=== PATIENT | female | born 1995 | race Caucasian/White ===

== ENCOUNTER 2021-08-24 15:33 | Emergency (ER) | payer OTHER, SELFPAY ==
--- NOTE | 2021-08-24 | ECG_ITS ---
Test Reason : PSYCHIC MEDICATION Blood Pressure : / mmHG Vent. Rate : 066 BPM Atrial Rate : 066 BPM P-R Int : 144 ms QRS Dur : 092 ms QT Int : 398 ms P-R-T Axes : 042 036 018 degrees QTc Int : 417 ms Normal sinus rhythm Normal ECG When compared to the previous EKG of No significant changes seen Referred By: Anitha Greenberg Electronically Signed By:REAGAN CASTELLON MD
[2021-08-24 15:41] VITALS: BP 114/68; PULSE 78; RESP 19; TEMP 36.6; O2SAT 98; BMI 41.3
--- NOTE | 2021-08-24 16:22 | ED_ITS ---
HPI - Psych General Chief Complaint: Psychiatric Symptoms Stated Complaint: Crisis Time Seen by Provider: 08/24/21 15:56 Source: patient Mode of arrival: ambulatory Limitations: no limitations History of Present Illness HPI Narrative: 26-year-old female with a past medical history of major depressive disorder, and ADHD, who has recently moved back to the area presents for anxiety and depression. Patient denies suicidal ideation at this time, but states that she has not been on her medications, and she often will become hospitalized for suicidal ideation and racing thoughts when she is not on her medications. Denies homicidal ideation, denies hallucinations. Patient was living in [place] and recently moved back here a month ago. She has lost her insurance due to a recent divorce, and her meds ran out. She has no therapist or psychiatrist in the area. Patient states she has had 10 prior psychiatric hospitalizations for suicidal ideation. States she smokes marijuana multiple times a day which makes her symptoms worsen she would like to quit. Took mushrooms 2 days ago. Denies narcotics or alcohol use. Patient states she has chronic back pain due to obesity and would like to get a lap band for weight loss so she can have a breast reduction. Patient states she has been on Zoloft 150 mg daily, Abilify 2 mg daily gabapentin 600 mg t.i.d., trazodone 100 mg at bedtime and Adderall 30 mg. Related Data Allergies Allergy/AdvReac Type Severity Reaction Status Date / Time No Known Allergies Allergy Unverified 12/30/19 18:50 [No Known Allergies*] Review of Systems Constitutional: Constitutional: Denies body ache(s), Denies chills, Denies fatigue, Denies fever(s), Denies headache(s), Denies malaise and Denies weakness Eyes: Eyes: Denies diplopia ENT: Reports Normal hearing present, Denies vertigo, Denies dizziness, Denies otalgia, Denies headache(s), Denies mouth pain, Denies post nasal drip, Denies sinus pain, Denies sinus pressure, Denies sore throat and Denies throat swelling Cardiovascular: Cardiovascular: Denies chest pain, Denies syncope, Denies leg edema, Denies lightheadedness, Denies Loss of Consciousness, Denies palpitations and Denies dyspnea Respiratory: Respiratory: Denies chest congestion, Denies cough and Denies dyspnea Gastrointestinal: Gastrointestinal: Denies abdominal pain, Denies hematochezia, Denies constipation, Denies diarrhea and Denies vomiting Genitourinary: Genitourinary: Reports no additional female genitourinary complaints Musculoskeletal: Musculoskeletal: Reports back pain Integumentary/Breasts: Skin/Breast: Denies rash Neurologic: Reports Normal hearing present, Denies Abnormal speech present, Reports behavioral changes, Denies confusion, Denies vertigo, Denies dizziness, Denies syncope, Denies headache(s), Denies Sensory deficit (Neuro) and Denies weakness Psychiatric: Psychiatric: Reports anxiety, Reports behavioral changes, Denies confusion, Reports depression, Denies auditory hallucinations, Reports mood swings, Denies visual hallucinations, Denies hallucinations, Denies homicidal ideation and Denies suicidal ideation Endocrine: Endocrine: Denies fatigue and Denies palpitations Allergic/Immunologic: Allergic/Immunologic: Denies throat swelling COUNTS INCLUDE 234 BEDS AT THE [facility] Past Medical History COUNTS INCLUDE 234 BEDS AT THE [facility] Narrative: Major depressive disorder ADHD Social History Social History Patient Tobacco Use Status: Never used Tobacco Use of substances other than those prescribed or required for medical reasons: Yes Substance Use Type: Hallucinogens and Marijuana Substance Use Frequency: Occasionally Last Used Substance: Days (ago) Advance Directives: No Advance Directives Information Provided: No Physical Exam Vital Signs: Vital Signs: Last Vital Signs Temp 98 F 08/24/21 15:41 Pulse 78 08/24/21 15:41 Resp 19 08/24/21 15:41 BP 114/68 08/24/21 15:41 Pulse Ox 98 08/24/21 15:41 BMI result Body Mass Index 41.3 Const: General: No confusion Nutritional Appearance: well nourished Orientation/consciousness: No confusion Limitations: no limitations HEENT: Head: Yes normal to inspection, Yes normocephalic and Yes atraumatic Ears: hearing grossly normal bilaterally, external ears normal, TM's normal bilaterally and EAC's normal General nose exam: Normal external nose present Face and sinus: Yes normal facial exam and Yes sinuses nontender Mouth: Normal oral and palatal mucosa present Throat: Yes posterior oropharynx normal Eyes: Conjunctivae: conjunctivae normal Pupils: Equal, round and reactive pupils present EOM: EOMs intact bilaterally Neck: Neck: Yes full ROM, Yes no lymphadenopathy and Yes supple Resp: Effort & Inspection: normal respiratory effort and able to speak in complete sentences Auscultation: clear to auscultation bilaterally, no crackles, no rales, no rhonchi and no wheezes Cardio: Rate: regular rate Rhythm: regular rhythm Heart sounds: S1 normal heart sound present and S2 normal heart sound present GI: Inspection: Yes normal to inspection Palpation (GI): Soft to palpation, nontender, no guarding and not rigid Percussion: Yes normal to percussion Auscultation: normal bowel sounds Skin: General skin exam: no rashes or lesions noted Neuro: General: gait normal and No confusion Cranial nerves: Yes CN's II- XII intact bilaterally, Yes Facial sensation intact/muscles of mastication intact, Yes Equal, round and reactive pupils present, Yes Normal accommodation reflex present, Yes Bilaterally intact EOM present, Yes Nystagmus not present, Yes Normal facial strength present, Yes Midline tongue present, Yes Normal hearing present, Yes Ability to bilaterally rotate head present and Yes Ability to bilaterally elevate shoulders present Cognition (Neuro): normal cognition Speech: No Abnormal speech present Motor exam (neuro): 5/5 motor strength present throughout and Pronator motor function not present Sensory Exam: No Sensory deficit (Neuro) Deep tendon reflexes (DTR's): Right brachioradialis reflex intensity grade: 1+, Left brachioradialis reflex intensity grade: 1+, Right patellar reflex intensity grade: 1+ and Left patellar reflex intensity grade: 1+ Coordination: [id number] test normal and [id number] test normal Pupils: Normal pupillary reactivity/response: bilateral Extrem: General: Yes normal to inspection and Yes full ROM Psych: Appearance: grossly normal Affect: normal affect Attitude: cooperative Thought process: Normal thought process present Course Course Course Narrative: 26-year-old female presents for anxiety and depression after being off her medications. Patient is concerned because when she gets off her medications she becomes suicidal. On exam, patient is, cooperative, answering all questions appropriately. Patient has stable vitals, physical exam is unremarkable. Will get labs, EKG, urine, tox screen, COVID Reevaluation(s) Reevaluation #1: Labs are remarkable for mild anemia, patient is COVID negative, awaiting urine Sign patient out to Lizzy Martin PA-C, awaiting medical clearance MDM - Psych Lab Data Result diagrams: 08/24/21 16:43 08/24/21 16:43 Labs: Lab Results 08/24/21 08/24/21 08/24/21 Range/Units 16:15 16:43 16:43 WBC 10.5 (4.8-10.8) X10*3/uL RBC 4.06 L (4.20-5.50) X10*6/uL Hgb 11.1 L (12.0-16.0) g/dl Hct 34.8 L (37.0-47.0) % MCV 85.7 (80.0-98.0) fL MCH 27.3 (27.0-33.0) pg MCHC 31.9 (31.0-35.0) g/dl RDW 13.5 (11.0-16.0) % Plt Count 285 (160-400) X10*3/uL MPV 9.3 L (9.4-12.3) fL Immature Gran % (Auto) 0.4 (0.0-0.4) % Neut % (Auto) 63.2 (45-73) % Lymph % (Auto) 29.0 (20-40) % [place] % (Auto) 5.7 (2-11) % Eos % (Auto) 1.3 (0-4) % Baso % (Auto) 0.4 (0-2) % Lymph # (Auto) 3.0 (1.2-4.9) X10*3/uL [place] # (Auto) 0.6 (0.1-1.2) X10*3/uL Eos # (Auto) 0.1 (0.0-0.4) X10*3/uL Baso # (Auto) 0.0 (0.0-0.2) X10*3/uL Abs Immat Gran (auto) 0.04 H (0.00-0.03) X10*3/uL Absolute Neuts (auto) 6.6 (2.0-8.3) x10*3/uL Absolute Nucleated RBC 0.000 (0.0-0.012) X10*3/uL Nucleated RBC % (auto) 0.0 (0.0-0.2) /100WBC Sodium 138 (135-145) mmol/L Potassium 4.0 (3.3-5.1) mmol/L Chloride 104 (96-108) mmol/L Carbon Dioxide 28 (22-29) mmol/L Anion Gap 10 L (12-20) BUN 16 (9-16) mg/dL Creatinine 0.83 (0.5-1.4) mg/dL Estim Creat Clear Calc 144.2 Estimated GFR > 60 Random Glucose 92 (60-115) mg/dL Calcium 9.7 (8.4-10.2) mg/dL COVID-19 ([facility]ILCAR) Negative (Negative) COVID-19 Clin Com See Note Discharge Plan Discharge Clinical Impression: Depression Patient Disposition: Still a Patient
[2021-08-24 16:41] LABS: COVID-19 Test Negative (Negative); IDNOW Serial# 9DD0AD1C
[2021-08-24 16:50] LABS: MANUAL DIFF FLAG NO
[2021-08-24 16:51] LABS: Basophils Percent Auto 0.4 % (0-2); Eosinophils Absolute Auto 0.1 X10*3/uL (0.0-0.4); Eosinophils Percent Auto 1.3 % (0-4); Hematocrit 34.8 % (37.0-47.0); Hemoglobin 11.1 g/dl (12.0-16.0); Imm Gran Abs Auto 0.04 X10*3/uL (0.00-0.03); Imm Gran Pct Auto 0.4 % (0.0-0.4); Mean Corpuscular HGB Conc 31.9 g/dl (31.0-35.0); Mean Corpuscular Hemoglobin 27.3 pg (27.0-33.0); Mean Corpuscular Volume 85.7 fL (80.0-98.0); Mean Platelet Volume 9.3 fL (9.4-12.3); Monocytes Absolute Auto 0.6 X10*3/uL (0.1-1.2); Monocytes Percent Auto 5.7 % (2-11); Neutrophils Absolute Auto 6.6 x10*3/uL (2.0-8.3); Neutrophils Percent Auto 63.2 % (45-73); Platelet Count 285 X10*3/uL (160-400); Red Blood Count 4.06 X10*6/uL (4.20-5.50); Red Cell Distribution Width 13.5 % (11.0-16.0); White Blood Count 10.5 X10*3/uL (4.8-10.8)
[2021-08-24 17:03] LABS: Anion Gap 10 (12-20); Blood Urea Nitrogen 16 mg/dL (9-16); Calcium 9.7 mg/dL (8.4-10.2); Carbon Dioxide 28 mmol/L (22-29); Chloride 104 mmol/L (96-108); Creatinine Clr Calc Pharmacy 144.2; Estimated Glomerular Filt Rate > 60; Glucose Random 92 mg/dL (60-115); Sodium 138 mmol/L (135-145)
[2021-08-24] MEDS: LORazepam 1 MG TABLET PO (17:10)
[2021-08-24 18:16] LABS: Appearance Urine CLEAR; Color Urine YELLOW; Glucose Urine UA NEG (NEG); Leukocyte Esterase Urine NEG (NEG); Nitrite Urine NEG (NEG); Specific Gravity - Urine >= 1.030 (1.005-1.025); UACC Culture Trigger NO; Urine Blood 3+ (NEG); Urine Ketones 5 MG/DL (NEG); Urine Protein 1+ MG/DL (NEG-TRACE)
[2021-08-24 18:17] LABS: UPreg QC Valid YES; Urine Pregnancy NEGATIVE (NEGATIVE)
[2021-08-24 18:21] LABS: WBC Urine 0-2 /HPF (0-4)
[2021-08-24 18:22] LABS: Bacteria Urine 2+ /LPF; Squamous Epithelial Cell Urine 3+ /LPF
[2021-08-24 18:25] LABS: Amphetamine Screen Urine Not Detected (Not Detect); Barbiturates, Urine Not Detected (Not Detect); Benzodiazepines Screen Urine Not Detected (Not Detect); Cannabinoid Screen Urine POSITIVE (Not Detect); Cocaine Screen Urine Not Detected (Not Detect); Fentanyl, urine Not Detected (Not Detect); Opiate Screen Urine Not Detected (Not Detect); Phencyclidine Screen Urine Not Detected (Not Detect)
--- NOTE | 2021-08-24 18:47 | PC.NURSE ---
smart sheet sent to [facility]
--- NOTE | 2021-08-24 19:10 | PHA.MEDREC ---
MED REC COMPLETE, PATIENT HAD A FEW CONCERNS SUCH GETTING SOMETHING FOR HER ANXIETY, INCREASING THE DOSE ON HER TRAZODONE, AND SHE WAS PREVIOUSLY ON ADDERALL XR 30 MG, WANTS TO RESTART ON 20 MG, I DIRECTED PATIENT TO ADDRESS HER CONCERNS WITH THE PROVIDER WHEN SHE IS SEEN Pharmacy Consult ? Medication Reconciliation Pharmacy has completed the medication reconciliation.
[2021-08-24 23:45] VITALS: BP 105/57; PULSE 65; RESP 17; TEMP 36.7; O2SAT 98
--- NOTE | 2021-08-25 06:04 | PC.NURSE ---
Patient slept through the night, no distress observed/reported, behavior non concerning, awaiting BHN assessment in the morning, med rec completed/MAR active, VSS, will continue to monitor.
[2021-08-25] MEDS: Gabapentin 600 MG TABLET PO (08:01)
[2021-08-25] MEDS: Sertraline HCL 25 MG TABLET 125 MG PO (08:01)
[2021-08-25] MEDS: Dextroamphetamine/Amphetamine XR 10 MG CAP.ER.24H 30 MG PO (08:01)
[2021-08-25] MEDS: ARIPiprazole 2 MG TABLET PO (09:42)
[2021-08-25] MEDS: LORazepam 1 MG TABLET PO (13:43)
== END 2021-08-25 13:56 | disposition home or self-care (01) ==
PROVIDERS: Physician Assistant; Emergency Provider Internal Medicine
DX: F33.9 Major depressive disorder, recurrent, unspecified (principal); F12.90 Cannabis use, unspecified, uncomplicated; F90.9 Attention-deficit hyperactivity disorder, unspecified type; Z79.899 Other long term (current) drug therapy; Z20.822 Contact with and (suspected) exposure to COVID-19
CPT/HCPCS: 80048; 80307; 81001; 81025; 85025; 87635; 93005; 99284

== ENCOUNTER 2021-10-02 20:27 | Emergency (ER) | payer OTHER, SELFPAY ==
[2021-10-02 20:44] VITALS: BP 110/64; PULSE 78; RESP 18; TEMP 36.3; O2SAT 94; BMI 41.3
--- NOTE | 2021-10-02 22:09 | PC.NURSE ---
Pt sitting in a wheelchair in the entry way of the ER. This RN getting a wheelchair for another patient and overheard C.M. on the phone state If I tell them that, they will lock me up. This RN calling Hugh RN due to possible SI despite denial during Triage.
[2021-10-02 23:01] LABS: COVID-19 Test Negative (Negative); IDNOW Serial# 55D5AD1C
[2021-10-02 23:04] LABS: Amphetamine Screen Urine POSITIVE (Not Detect); Barbiturates, Urine Not Detected (Not Detect); Benzodiazepines Screen Urine Not Detected (Not Detect); Cannabinoid Screen Urine POSITIVE (Not Detect); Cocaine Screen Urine Not Detected (Not Detect); Fentanyl, urine Not Detected (Not Detect); Opiate Screen Urine Not Detected (Not Detect); Phencyclidine Screen Urine Not Detected (Not Detect)
--- NOTE | 2021-10-02 23:29 | ED_ITS ---
HPI - General Adult General Chief complaint: General Medical Stated complaint: Psych eval Time Seen by Provider: 10/02/21 23:29 Source: patient Mode of arrival: ambulatory Limitations: no limitations History of Present Illness HPI narrative: This is a 26-year-old female history of anxiety, depression presenting to the emergency department with complaints of anxiety, depression and not being able to take her medications times 3-4 weeks. Patient tells me 5 weeks ago she was seen here in the emergency department was evaluated was told to follow-up with [facility] which she did, N assigned her provider who prescribed her medications, and told her follow-up with them in 3 weeks, she tells me a few weeks past and she never heard from the provider and that they never sent her scripts to her pharmacy. She tells me she has been having increasing anxiety and depression. She is not sure why this is happening. She tells me she needs to speak to somebody for her anxiety and depression. Denies visual, auditory and tactile hallucinations. Tells me she smokes marijuana, denies any other drug use, drinks alcohol socially and denies any tobacco use. Patient denies SI and HI. She has had multiple psychiatric admissions. Medications she is currently taking includes Adderall, gabapentin, Abilify, Zoloft and trazodone. To note, patient tells me that she got a notification from her pharmacy that her meds were filled today however she would like to speak to somebody about her anxiety and her depression. She tells me it is affecting her daily life. Denying any medical complaints at this time Related Data Home Medications Medication Instructions Recorded Confirmed aripiprazole 2 mg tablet 1 tab PO QAM 10/02/21 10/02/21 dextroamphetamine-amphetamine 30 1 tab PO QAM 10/02/21 10/02/21 mg tablet gabapentin 600 mg tablet 1 tab PO TID 10/02/21 10/02/21 sertraline 100 mg tablet 1 tab PO QAM 10/02/21 10/02/21 trazodone 100 mg tablet 1 tab PO BEDTIME 10/02/21 10/02/21 Allergies Allergy/AdvReac Type Severity Reaction Status Date / Time No Known Allergies Allergy Unverified 12/30/19 18:50 [No Known Allergies*] Review of Systems Review of Systems: Constitutional : No Fever, No Chills ENT/Mouth : No Ear Pain, No Nasal Congestion, No sore throat Eyes: No Eye Pain, No Swelling, No Redness Cardiovascular : No Chest Pain, No SOB Respiratory : No Cough, No Sputum, No Dyspnea Gastrointestinal : No Nausea, No Vomiting, No Diarrhea, No Hematochezia, No Melena Genitourinary : No Dysuria, No Urinary Frequency, No Hematuria Musculoskeletal : No Myalgias Skin : No Skin Lesions, No rash Neuro : No Weakness, No Numbness, No Paresthesias, No Dizziness, No Headache Psych : positive Anxiety, positive Depression, No SI/HI All other systems reviewed and are negative Yes all other systems are reviewed and are negative [facility] Past Medical History Attestation statement: The following information was validated with the patient. Source: old records reviewed and nursing notes reviewed Social History Social History Patient Tobacco Use Status: Never used Tobacco Substance Use Type: Hallucinogens and Marijuana Advance Directives: No Advance Directives Information Provided: No Physical Exam ED Vital Signs: Vital Signs - 24 hr 10/02/21 20:44 Temperature 97.3 F Pulse Rate 78 Respiratory Rate 18 Blood Pressure 110/64 Pulse Oximetry 94 Oxygen Delivery Method Room Air BMI result Body Mass Index 41.3 Vital signs stable Appearance: Alert.? Oriented X3.? No acute distress.? Head: Normocephalic, atraumatic, no step-offs or deformities Eyes: Pupils equal, round and reactive to light.? CVS: Normal heart rate and rhythm.? Pulses normal.? Respiratory: No respiratory distress.? Breath sounds normal.? Abdomen: Soft and nontender.? Skin: Skin warm and dry.? Normal skin color.? Normal skin turgor.? Extremities: No lower extremity edema.? No calf ttp. 5/5 strength to bilateral upper and lower extremities Neuro: Oriented X 3.? No motor deficit.? No sensory deficit. CN 2-12 intact Course Reevaluation(s) Reevaluation #1: Urine toxicology positive for amphetamines and marijuana. COVID negative. At this time patient will be placed in physician observation to allow more time for patient to be evaluated by the behavioral health team. Time observation was started patient common cooperative no acute distress. Will continue to monitor. Patient is not on a Section 12, if patient desires to leave she can do so as long as she is denying suicidal and homicidal ideation and her presentation remains unchanged. Time: 23:34 Medical Decision Making MDM Narrative Medical decision making narrative: 2315 26-year-old female presents the anxiety, depression requesting to speak to the behavioral health team. Denies SI and HI. Has not been taking her medications due to not being able to fill them however they are currently at her pharmacy waiting for her. Physical examination benign. Plan at this time is COVID test, urine. Patient will be medically cleared and then she can speak to the behavioral health team. Medical Records Medical records reviewed: Yes I reviewed the patient's medical records. Lab Data Lab results reviewed: Yes I reviewed the patient's lab results. Labs: Lab Results 10/02/21 10/02/21 Range/Units 22:38 22:38 Urine Opiates Screen Not Detected (Not Detect) Urine Fentanyl Screen Not Detected (Not Detect) Ur Barbiturates Screen Not Detected (Not Detect) Ur Phencyclidine Scrn Not Detected (Not Detect) Ur Amphetamines Screen POSITIVE H (Not Detect) U Benzodiazepines Scrn Not Detected (Not Detect) Urine Cocaine Screen Not Detected (Not Detect) U Marijuana (THC) Screen POSITIVE H (Not Detect) COVID-19 ([facility]ILCAR) Negative (Negative) COVID-19 Clin Com See Note Critical Care Time Critical Care Time Critical Care Time: No Discharge Plan Discharge Clinical Impression: Depression, Anxiety Patient Disposition: Still a Patient Instructions: Anxiety (ED), Depression (ED) Additional Instructions: Take your medications as prescribed. If you were prescribed antibiotics today, it is important that you take your medication to their entirety, do not skip any doses, do not finish them early. Follow-up with your primary care provider this week. Return to the emergency department with new or worsening symptoms. Such as fevers, chills, chest pain, shortness of breath, nausea, vomiting, dizziness, headache, vision changes, lethargy, suicidal ideation, homicidal ideation. In case of emergency call 911 Follow-up with the behavioral health team including your psychiatrist and therapist. Prescriptions: No Action gabapentin 600 mg tablet 1 tab PO TID sertraline 100 mg tablet 1 tab PO QAM dextroamphetamine-amphetamine 30 mg tablet 1 tab PO QAM trazodone 100 mg tablet 1 tab PO BEDTIME aripiprazole 2 mg tablet 1 tab PO QAM Referrals[facility] [Provider Group] - 1 day Stand Alone Forms: Work/School Release
[2021-10-02 23:37] VITALS: BP 109/58; PULSE 75; RESP 17; TEMP 36.5; O2SAT 98
[2021-10-02] MEDS: LORazepam 1 MG TABLET PO (23:58)
--- NOTE | 2021-10-03 01:30 | MHC.CARE ---
Pt self presented to the ED reporting that she was out of her medications and couldn't get in touch with the psychiatric provider at [facility] to have them refilled. Per nurse- medications are at the pharmacy. Pt presents with odd affect but is not considered to be a risk for harm to self or others, nor does her judgment appeared to be impaired. Plan is for pt to stay in the pod overnight and discharge in the morning so that she can picking tech her medications.
--- NOTE | 2021-10-03 06:32 | PC.NURSE ---
Patient slept through the night, + effect from Ativan 1 mg PO, no distress observed/reported, patient denied si/hi/avh, BHN referral completed for depression/confirmed/pending BHN ETA, med rec completed/pending provider's approval, VSS, behavior appropriate, will continue to monitor.
--- NOTE | 2021-10-03 08:47 | PC.NURSE ---
pt received in bed 7, sleeping. no concerning behaviors. will continue to monitor
--- NOTE | 2021-10-03 10:55 | MHC.CARE ---
Spoke to patient in [facility] this morning to discuss discharge plan, she understands that her prescriptions are ready at the pharmacy. Patient stated that she has been struggling to contact her new psychiatrist and is upset that he did not prescribe extended release Adderall which she has taken for about 20 years. She explained that the mehta of medication makes her anxious and has to repeat this with each dose. Unfortunately this is not something that can be addressed in the ED, which she understood. A phone and # for her provider, she did reach out. Patient calling her mother for a ride. ED provider updated.
== END 2021-10-03 10:23 | disposition home or self-care (01) ==
PROVIDERS: Emergency Provider Internal Medicine
DX: F33.1 Major depressive disorder, recurrent, moderate (principal); F41.1 Generalized anxiety disorder; F43.0 Acute stress reaction; Z79.899 Other long term (current) drug therapy; Z20.822 Contact with and (suspected) exposure to COVID-19
CPT/HCPCS: 80307; 87635; 99283; 99284

== ENCOUNTER 2021-12-13 14:52 | Emergency (ER) | payer OTHER, SELFPAY ==
[2021-12-13 15:04] VITALS: BP 112/67; PULSE 667; RESP 19; TEMP 36.6; O2SAT 99; BMI 42.8
--- NOTE | 2021-12-13 17:20 | ED_ITS ---
HPI - General Adult General Chief complaint: General Medical Stated complaint: Disoriented Time Seen by Provider: 12/13/21 15:13 Related Data Home Medications Medication Instructions Recorded Confirmed aripiprazole 2 mg tablet 1 tab PO QAM 10/02/21 10/02/21 dextroamphetamine-amphetamine 30 1 tab PO QAM 10/02/21 10/02/21 mg tablet gabapentin 600 mg tablet 1 tab PO TID 10/02/21 10/02/21 sertraline 100 mg tablet 1 tab PO QAM 10/02/21 10/02/21 trazodone 100 mg tablet 1 tab PO BEDTIME 10/02/21 10/02/21 Previous Rx's Medication Instructions Recorded dextroamphetamine-amphetamine 30 30 mg PO DAILY #30 tabs 12/13/21 mg tablet (Adderall) hydroxyzine HCl 25 mg tablet 25 mg PO Q6-8H PRN anxiety #40 tabs 12/13/21 Allergies Allergy/AdvReac Type Severity Reaction Status Date / Time No Known Allergies Allergy Unverified 12/30/19 18:50 [No Known Allergies*] Review of Systems Review of Systems: Yes all other systems are reviewed and are negative [facility] Past Medical History Medical History (Updated 12/13/21 @ 18:02 by Diogenes Landers MD) ADHD Anxiety Bipolar 1 disorder Social History Social History Patient Tobacco Use Status: Never used Tobacco Use of substances other than those prescribed or required for medical reasons: Yes Substance Use Type: Marijuana Advance Directives: No Advance Directives Information Provided: No Patient : No Physical Exam ED Vital Signs: Vital Signs - 24 hr 12/13/21 15:04 12/13/21 17:42 Temperature 98 F 98.7 F Pulse Rate 667 H 77 Respiratory Rate 19 20 Blood Pressure 112/67 117/73 Pulse Oximetry 99 100 Oxygen Delivery Method Room Air Nasal Cannula BMI result Body Mass Index 42.8 Medical Decision Making MDM Narrative Medical decision making narrative: Patient's symptoms likely from withdrawal from adderall which she had been taking for last 20 years as she moved from [place] and she does not have any psychiatrist working on getting a new one Discharge Plan Discharge Clinical Impression: Anxiety Patient Disposition: Home, Self-Care Instructions: Anxiety (ED) Additional Instructions: Take your Adderall and Atarax as prescribed Prescriptions: New dextroamphetamine-amphetamine [Adderall] 30 mg tablet 30 mg PO DAILY Qty: 30 0RF Rx Instructions: Partial Fill upon patient request. hydroxyzine HCl 25 mg tablet 25 mg PO Q6-8H PRN (Reason: anxiety) Qty: 40 0RF No Action gabapentin 600 mg tablet 1 tab PO TID sertraline 100 mg tablet 1 tab PO QAM dextroamphetamine-amphetamine 30 mg tablet 1 tab PO QAM trazodone 100 mg tablet 1 tab PO BEDTIME aripiprazole 2 mg tablet 1 tab PO QAM Referrals: Galileo Knight MD [Physician] - 2 weeks
--- NOTE | 2021-12-13 17:32 | ED_ITS ---
HPI - General Adult General Chief complaint: General Medical Stated complaint: Disoriented Time Seen by Provider: 12/13/21 15:13 Source: patient Mode of arrival: ambulatory Limitations: no limitations History of Present Illness HPI narrative: History of bipolar, anxiety, ADHD on multiple medications use the bilateral for last 20 years when she was in [place] she moved to [place] in 10/03 unable to establish a psychiatrist yet has not taken her Adderall for last 3 weeks also 3 weeks ago while tubing she fell of the tube about knee-high water and hit her head no loss of consciousness patient is more worried since then unable to sleep feel anxious nausea during complaints no projectile vomiting patient denies any suicidal ideation or significant depression Related Data Home Medications Medication Instructions Recorded Confirmed aripiprazole 2 mg tablet 1 tab PO QAM 10/02/21 10/02/21 dextroamphetamine-amphetamine 30 1 tab PO QAM 10/02/21 10/02/21 mg tablet gabapentin 600 mg tablet 1 tab PO TID 10/02/21 10/02/21 sertraline 100 mg tablet 1 tab PO QAM 10/02/21 10/02/21 trazodone 100 mg tablet 1 tab PO BEDTIME 10/02/21 10/02/21 Previous Rx's Medication Instructions Recorded dextroamphetamine-amphetamine 30 30 mg PO DAILY #30 tabs 12/13/21 mg tablet (Adderall) hydroxyzine HCl 25 mg tablet 25 mg PO Q6-8H PRN anxiety #40 tabs 12/13/21 Allergies Allergy/AdvReac Type Severity Reaction Status Date / Time No Known Allergies Allergy Unverified 12/30/19 18:50 [No Known Allergies*] Review of Systems Review of Systems: Yes all other systems are reviewed and are negative [facility] Past Medical History Medical History (Updated 12/13/21 @ 18:02 by Diogenes Landers MD) ADHD Anxiety Bipolar 1 disorder Social History Social History Patient Tobacco Use Status: Never used Tobacco Use of substances other than those prescribed or required for medical reasons: Yes Substance Use Type: Marijuana Advance Directives: No Advance Directives Information Provided: No Patient : No Physical Exam ED Vital Signs: Vital Signs - 24 hr 12/13/21 15:04 12/13/21 17:42 Temperature 98 F 98.7 F Pulse Rate 667 H 77 Respiratory Rate 19 20 Blood Pressure 112/67 117/73 Pulse Oximetry 99 100 Oxygen Delivery Method Room Air Nasal Cannula BMI result Body Mass Index 42.8 Appearance: Alert. Oriented X3. No acute distress. Eyes: PERRLA, No Nystagmus ENT: Pharynx normal. Oral Mucosa moist Neck: Normal inspection. Neck supple. CVS: Normal heart rate and rhythm. Pulses normal. Respiratory: No respiratory distress. Equal air entry bilateral, no wheezing/rales/rhonchi Abdomen: Soft and nontender. Bowel sounds are present, no mass palpable, no CVA tenderness Skin: Skin warm and dry. Normal skin color. Normal skin turgor. Extremities: No lower extremity edema. No calf tenderness psych: Mood stable no SI no hallucination or delusion Neuro: Oriented X 3. No motor deficit. Medical Decision Making MDM Narrative Medical decision making narrative: Patient's symptoms likely from withdrawal from adderall which she had been taking for last 20 years as she moved from [place] and she does not have any psychiatrist working on getting a new one Discharge Plan Discharge Clinical Impression: Anxiety Patient Disposition: Home, Self-Care Instructions: Anxiety (ED) Additional Instructions: Take your Adderall and Atarax as prescribed Prescriptions: New dextroamphetamine-amphetamine [Adderall] 30 mg tablet 30 mg PO DAILY Qty: 30 0RF Rx Instructions: Partial Fill upon patient request. hydroxyzine HCl 25 mg tablet 25 mg PO Q6-8H PRN (Reason: anxiety) Qty: 40 0RF No Action gabapentin 600 mg tablet 1 tab PO TID sertraline 100 mg tablet 1 tab PO QAM dextroamphetamine-amphetamine 30 mg tablet 1 tab PO QAM trazodone 100 mg tablet 1 tab PO BEDTIME aripiprazole 2 mg tablet 1 tab PO QAM Referrals: Galileo Knight MD [Physician] - 2 weeks Interventions: ED Discharge Assessment Last Done: 12/13/21 18:12 Discharge Date/Time: 12/13/21 18:13
[2021-12-13 17:42] VITALS: BP 117/73; PULSE 77; RESP 20; TEMP 37.1; O2SAT 100
[2021-12-13] MEDS: hydrOXYzine HCL 25 MG TABLET PO (18:01)
[2021-12-13] MEDS: LORazepam 1 MG TABLET PO (18:05)
--- NOTE | 2021-12-13 18:05 | PC.NURSE ---
Patient arrived with withdraw symptoms such as agitations, irritation, dizziness, and forgetful d/t stopping taking the [employer] adderral. Patient VS were stable and meds were administer as order by .
== END 2021-12-13 18:13 | disposition home or self-care (01) ==
PROVIDERS: Emergency Provider Internal Medicine
DX: F41.9 Anxiety disorder, unspecified (principal)
CPT/HCPCS: 99283; 99284

== ENCOUNTER 2022-03-16 16:55 | Emergency (ER) | payer OTHER, SELFPAY ==
[2022-03-16 17:00] VITALS: BP 131/86; PULSE 76; RESP 18; TEMP 36.2; O2SAT 98; BMI 42.8
--- NOTE | 2022-03-16 17:23 | ED.HA ---
HPI - Headache General Chief Complaint: Headache Stated Complaint: Migraine, vomiting Time Seen by Provider: 03/16/22 17:38 Source: patient Mode of arrival: ambulatory Limitations: no limitations History of Present Illness HPI Narrative: Poppy is a 27 yo female with a PMHx of migraines, anxiety, and bipolar 1 disorder who presents to the emergency department with a CC of a headache that started last night and has continued today. She says that she does have migraines that are triggered by stress and she was recently going through some personal stressors at home. She describes the headache as a pressure all over her head. She tried showering and taking some of her mom's sumitriptan, both of which did not help. She did vomit after taking the medication. She additionally reports photophobia but denies fevers, chills, chest pain, shortness of breath, diarrhea, constipation, or urinary changes. She says that she has had headaches like this before but typically they have gone away with rest and medication. MD elicited complaint: migraine Pertinent past history: migraines Onset (ago): day(s) Onset description: suddenly Location: generalized Severity: severe Quality & Timing: pressure Exacerbating factors: light and other (stress) Relieving factors: rest and sleep Context: other (occured due to personal stressor with family) Associated symptoms: none Treatments prior to arrival: migraine medication (sumitriptan) Related Data Home Medications Medication Instructions Recorded Confirmed aripiprazole 2 mg tablet 1 tab PO QAM 10/02/21 10/02/21 dextroamphetamine-amphetamine 30 1 tab PO QAM 10/02/21 10/02/21 mg tablet gabapentin 600 mg tablet 1 tab PO TID 10/02/21 10/02/21 sertraline 100 mg tablet 1 tab PO QAM 10/02/21 10/02/21 trazodone 100 mg tablet 1 tab PO BEDTIME 10/02/21 10/02/21 Previous Rx's Medication Instructions Recorded dextroamphetamine-amphetamine 30 30 mg PO DAILY #30 tabs 12/13/21 mg tablet (Adderall) hydroxyzine HCl 25 mg tablet 25 mg PO Q6-8H PRN anxiety #40 tabs 12/13/21 Allergies Allergy/AdvReac Type Severity Reaction Status Date / Time No Known Allergies Allergy Verified 03/16/22 16:59 [No Known Allergies*] Review of Systems Review of Systems: Yes all other systems are reviewed and are negative Constitutional: Constitutional: Reports no additional constitutional complaints, Denies body ache(s), Denies chills, Denies fever(s), Reports headache(s) and Denies weakness Eyes: Eyes: Reports no additional eye complaints and Denies change in vision ENT: Reports system reviewed and no additional complaints, except as documented, Denies dizziness, Reports headache(s), Denies nasal congestion, Denies nasal discharge and Denies neck pain Cardiovascular: Cardiovascular: Reports no additional cardiovascular complaints, Denies chest pain, Denies leg edema and Denies dyspnea Respiratory: Respiratory: Reports no additional respiratory complaints, Denies cough and Denies dyspnea Gastrointestinal: Gastrointestinal: Reports no additional gastrointestinal complaints, Denies abdominal pain, Denies diarrhea, Reports nausea and Reports vomiting (vomited after taking sumitriptan) Genitourinary: Genitourinary: Reports no additional female genitourinary complaints and Denies urinary incontinence Musculoskeletal: Musculoskeletal: Reports no additional musculoskeletal complaints, Denies back pain, Denies arthralgias, Denies joint swelling, Denies neck pain, Denies numbness and Denies tingling Integumentary/Breasts: Skin/Breast: Reports system reviewed and no additional complaints, except as docu and Denies rash Neurologic: Reports system reviewed and no additional complaints, except as documented, Denies Abnormal speech present, Denies dizziness, Reports headache(s), Denies numbness, Denies tingling and Denies weakness PMFSH Past Medical History Attestation statement: The following information was validated with the patient. Source: old records reviewed Medical History ADHD Anxiety Bipolar 1 disorder Social History Social History Patient Tobacco Use Status: Never used Tobacco Substance Use Type: Marijuana Advance Directives: No Advance Directives Information Provided: No Physical Exam Vital Signs: Vital Signs: Last Vital Signs Temp 97.1 F 03/16/22 17:00 Pulse 76 03/16/22 17:00 Resp 18 03/16/22 17:00 BP 131/86 03/16/22 17:00 Pulse Ox 98 03/16/22 17:00 O2 Del Method 03/16/22 17:00 BMI result Body Mass Index 42.8 Const: General: cooperative, healthy appearing, comfortable and no acute distress Orientation/consciousness: patient oriented x3 Limitations: no limitations HEENT: Head: Yes normal to inspection and No Temporal artery tenderness present Ears: hearing grossly normal bilaterally and TM's normal bilaterally General nose exam: Normal external nose present Face and sinus: Yes normal facial exam Mouth: Normal oral and palatal mucosa present Throat: Yes posterior oropharynx normal Eyes: General: appearance normal, both eyes and all related structures Pupils: Equal, round and reactive pupils present Neck: Neck: Yes normal visual inspection and Yes no meningeal signs Chest: Chest palpation & inspection: normal inspection of the chest Resp: Effort & Inspection: normal respiratory effort Auscultation: clear to auscultation bilaterally Cardio: Rate: regular rate Rhythm: regular rhythm Peripheral pulses: Peripheral pulses 2+ throughout GI: Inspection: Yes normal to inspection Palpation (GI): Soft to palpation and nontender Auscultation: normal bowel sounds Back/Spine/Pelvis: Thoracic/Lumbar Spine: thoracic and lumbar spine normal to inspection Skin: General skin exam: no rashes or lesions noted Neuro: General: patient oriented x3, no meningeal signs, no focal motor deficits and normal sensation to monofilament Cranial nerves: Yes CN's II-XII intact bilaterally and Yes Equal, round and reactive pupils present Cognition (Neuro): normal cognition Speech: No Abnormal speech present Gait exam (Neuro): Normal gait present Motor exam (neuro): 5/5 motor strength present throughout Sensory Exam: Normal double simultaneous stimulation for sensation Extrem: General: Yes normal to inspection Course Course Course Narrative: This is a rapid medical exam. Additional HPI, ROS, PE deferred for primary provider. 27 yo female with history of migraines here with migraine/vomiting not relieved with excedrin. BILL Mcwilliams is a 27 yo female with a history of migraines, anxiety, and bipolar disorder who presented to the ED with a migraine not relieved by medication or rest. Pt vomited once today after taking sumitriptan. PE was unremarkable. normal neuro with no focal deficits. Pt was given Benedryl 25 mg, Ketrolac 30 mg, Metoclopramide 10 mg all IV and was also given some normal saline for hydration. Pt symptoms improved significantly. She indicates she would like to leave and will be discharged. Medications Administered Discontinued Medications Generic Name Dose Route Start Last Admin Trade Name Doug PRN Reason Stop Dose Admin Diphenhydramine HCl 25 mg 03/16/22 17:44 03/16/22 18:43 Diphenhydramine Hcl 50 Mg/Ml Vial IVPUSH 03/16/22 17:45 25 mg ONCE ONE Administration Sodium Chloride 1,000 mls @ 999 mls/hr 03/16/22 17:44 03/16/22 20:23 Ns IV 03/16/22 18:44 Infused .Q1H1M STA Infusion Ketorolac Tromethamine 30 mg 03/16/22 17:44 03/16/22 18:42 Ketorolac Tromethamine 30 Mg/Ml Vial IVPUSH 03/16/22 17:45 30 mg ONCE ONE Administration Metoclopramide HCl 10 mg 03/16/22 17:44 03/16/22 18:34 Metoclopramide Hcl 10 Mg/2 Ml Vial IVPUSH 03/16/22 17:45 10 mg ONCE ONE Administration MDM - Headache MDM Narrative Medical decision making narrative: consider meningitis, pseudotumour cerebri, temporal arteritis, SAH Less likely meningitis with no meningeal signs, no fever. Less likely pseudotumor cerebri with no change in positions with headache. Less likely temporal arteritis with no focal temporal artery tenderness, no fevers, vision changes. Less likely subarachnoid hemorrhage with gradual onset of symptoms with no reports of sudden headache or thunderclap headache. Differential Diagnosis Differential diagnosis: Likely migraine Medical Records Attestation: I reviewed the patient's medical records. Lab Data Attestation: I reviewed the patient's lab results. Discharge Plan Discharge Clinical Impression: Migraine Patient Disposition: Home, Self-Care Instructions: Migraine Headache (ED) Prescriptions: No Action gabapentin 600 mg tablet 1 tab PO TID sertraline 100 mg tablet 1 tab PO QAM dextroamphetamine-amphetamine 30 mg tablet 1 tab PO QAM trazodone 100 mg tablet 1 tab PO BEDTIME aripiprazole 2 mg tablet 1 tab PO QAM dextroamphetamine-amphetamine [Adderall] 30 mg tablet 30 mg PO DAILY Qty: 30 0RF Rx Instructions: Partial Fill upon patient request. hydroxyzine HCl 25 mg tablet 25 mg PO Q6-8H PRN (Reason: anxiety) Qty: 40 0RF Referrals: Physician,None [Primary Care Provider] - Interventions: ED Discharge Assessment Last Done: 03/16/22 20:23 Discharge Date/Time: 03/16/22 20:24
[2022-03-16] MEDS: 0.9 % Sodium Chloride 1,000 ML 999 ML IV (18:32)
[2022-03-16] MEDS: Metoclopramide HCl 10 MG/2 ML VIAL IVPUSH (18:34)
[2022-03-16] MEDS: Ketorolac Tromethamine 30 MG/ML VIAL IVPUSH (18:42)
[2022-03-16] MEDS: diphenhydrAMINE HCL 50 MG/ML VIAL 25 MG IVPUSH (18:43)
--- NOTE | 2022-03-16 20:22 | PC.NURSE ---
Pt. resting quietly in bed in dark room. Pt. reports pain relief from the migraine IVF fluids complete. IV removed. Pt. dc'd.
== END 2022-03-16 20:24 | disposition home or self-care (01) ==
PROVIDERS: Emergency Provider Emergency Medicine Emergency Medical Services
DX: G43.909 Migraine, unspecified, not intractable, without status migrainosus (principal)
CPT/HCPCS: 96361; 96374; 96375; 99284; J1200; J1885; J2765

== ENCOUNTER 2022-03-25 08:37 | Emergency (ER) | payer OTHER, SELFPAY ==
[2022-03-25 08:46] VITALS: BP 134/80; PULSE 91; RESP 20; TEMP 36.5; O2SAT 97; BMI 42.8
--- NOTE | 2022-03-25 08:53 | ED_ITS ---
HPI - General Adult General Chief complaint: General Medical Stated complaint: Migraine/Neck pain Time Seen by Provider: 03/25/22 08:53 Source: patient Mode of arrival: ambulatory Limitations: no limitations History of Present Illness HPI narrative: Patient is a 27 year old assigned female at with a history of migraines presenting to the emergency department today with a headache, nausea, and fe vers. Patient states that over the last 2 weeks she has noticed she is having worsening migraines and now she is having nausea and intermittent fevers. Patient denies any dizziness, lightheadedness, abdominal pain, vomiting, chills, blurry vision, double vision, loss of vision, chest pain, difficulty breathing, shortness of breath, back pain, night sweats, pain with urination, increased urinary frequency, increased urinary urgency, blood in her urine or stool, syncope or a near syncopal episode, recent trauma or falls, bowel incontinence, bladder incontinence, bowel retention, bladder retention, or any other complaints at this time. Onset (ago): week(s) Severity: mild Severity scale (1-10): 2 Relieving factors: none Exacerbating factors: none Associated symptoms: fever/chills Treatments prior to arrival: none Related Data Home Medications Medication Instructions Recorded Confirmed aripiprazole 2 mg tablet 1 tab PO QAM 10/02/21 10/02/21 dextroamphetamine-amphetamine 30 1 tab PO QAM 10/02/21 10/02/21 mg tablet gabapentin 600 mg tablet 1 tab PO TID 10/02/21 10/02/21 sertraline 100 mg tablet 1 tab PO QAM 10/02/21 10/02/21 trazodone 100 mg tablet 1 tab PO BEDTIME 10/02/21 10/02/21 Previous Rx's Medication Instructions Recorded dextroamphetamine-amphetamine 30 30 mg PO DAILY #30 tabs 12/13/21 mg tablet (Adderall) hydroxyzine HCl 25 mg tablet 25 mg PO Q6-8H PRN anxiety #40 tabs 12/13/21 naproxen 500 mg tablet 500 mg PO BID 7 days #14 tabs 03/25/22 Allergies Allergy/AdvReac Type Severity Reaction Status Date / Time No Known Allergies Allergy Verified 03/16/22 16:59 [No Known Allergies*] Review of Systems Constitutional: Constitutional: Reports no additional constitutional complaints, Reports body ache(s), Denies chills, Reports fever(s), Reports headache(s) and Denies night sweats Eyes: Eyes: Reports no additional eye complaints, Denies blurry vision, Denies change in vision, Denies diplopia, Denies eye discharge, Denies loss of vision and Denies eye pain ENT: Denies dizziness and Reports headache(s) Cardiovascular: Cardiovascular: Reports no additional cardiovascular complaints, Denies chest pain, Denies lightheadedness, Denies Loss of Consciousness and Denies dyspnea Respiratory: Respiratory: Reports no additional respiratory complaints and Denies dyspnea Gastrointestinal: Gastrointestinal: Reports no additional gastrointestinal complaints, Denies abdominal pain, Denies melena, Denies hematochezia, Denies change in bowel habits and Denies change in stool character Genitourinary: Genitourinary: Denies hematuria, Denies urinary frequency, Denies dysuria, Denies urinary incontinence, Denies urinary hesitancy and Denies urinary urgency Musculoskeletal: Musculoskeletal: Reports no additional musculoskeletal complaints, Denies numbness and Denies tingling Neurologic: Denies dizziness, Reports headache(s), Denies loss of vision, Denies numbness and Denies tingling Psychiatric: Psychiatric: Reports no additional psychiatric complaints Endocrine: Endocrine: Reports no additional endocrine complaints Hematologic/Lymphatic: Hematologic/Lymphatic: Reports no additional hematologic/lymphatic complaints Allergic/Immunologic: Allergic/Immunologic: Reports no additional allergic/immunologic complaints PMFSH Past Medical History Attestation statement: The following information was validated with the patient. Source: old records reviewed and nursing notes reviewed Medical History ADHD Anxiety Bipolar 1 disorder Social History Social History Patient Tobacco Use Status: Never used Tobacco Substance Use Type: Marijuana Advance Directives: No Advance Directives Information Provided: No Physical Exam ED Vital Signs: Vital Signs - 24 hr 03/25/22 08:46 Temperature 97.7 F Pulse Rate 91 Respiratory Rate 20 Blood Pressure 134/80 Pulse Oximetry 97 Oxygen Delivery Method Room Air BMI result Body Mass Index 42.8 Const General: cooperative, no acute distress, alert and awake Nutritional Appearance: well nourished Orientation/consciousness: patient oriented x3 Limitations: no limitations HENMT Head: Yes normal to inspection and Yes atraumatic Ears: hearing grossly normal bilaterally and external ears normal General nose exam: Normal external nose present, no nasal discharge noted and no epistaxis Face and sinus: Yes normal facial exam, No abrasion and No laceration Mouth: Normal oral and palatal mucosa present, no drooling and no muffled voice Eyes General: appearance normal, both eyes and all related structures Periorbital: periorbital findings normal Eyelids: Yes eyelids normal Conjunctivae: conjunctivae normal Pupils: Equal, round and reactive pupils present EOM: EOMs intact bilaterally Neck Neck: Yes normal visual inspection, Yes full ROM and Yes no lymphadenopathy Chest Chest palpation & inspection: normal inspection of the chest Resp Effort & Inspection: normal respiratory effort and able to speak in complete sentences Auscultation: clear to auscultation bilaterally Cardio Rate: regular rate Rhythm: regular rhythm GI Inspection: Yes normal to inspection Palpation (GI): Soft to palpation, not firm, nontender, no guarding and not rigid Neuro General: patient oriented x3 and moves all extremities Cranial nerves: Yes Equal, round and reactive pupils present Cognition (Neuro): normal cognition Motor exam (neuro): 5/5 motor strength present throughout Sensory Exam: Normal double simultaneous stimulation for sensation Coordination: [id number] test normal Extrem General: Yes normal to inspection, Yes full ROM and Yes capillary refill normal Psych Appearance: grossly normal Mental Status: mental status grossly normal Affect: normal affect Attitude: cooperative Thought process: Normal thought process present Thought content: Normal thought content present Insight: Good insight present (Psych) Medications Administered Discontinued Medications Generic Name Dose Route Start Last Admin Trade Name Freq PRN Reason Stop Dose Admin Ketorolac Tromethamine 15 mg 03/25/22 10:20 03/25/22 10:26 Ketorolac Tromethamine 15 Mg/Ml Vial IM 03/25/22 10:21 15 mg ONCE ONE Administration Medical Decision Making Medical Decision Making [facility] Narrative: Patient is a 27 year old assigned female at with a history of migraines presenting to the emergency department today with a headache, nausea, and intermittent fevers. Patient's physical exam was unremarkable. Patient's influenza swab was positive. I explained my physical exam findings as well as all test results to the patient. I answered all questions asked by the patient. Patient received IM Toradol which she stated helped her headache significantly. I stressed the importance of the patient taking her medication as prescribed. I stressed the importance of the patient following up with her primary care provider. I stressed the importance of the patient returning to the emergency department immediately if her symptoms were to worsen or if she were to develop any dizziness, shortness of breath, difficulty breathing, chest pain, blurry vision, loss of vision, nausea, vomiting, abdominal pain, fever, chills, back pain, or any other complaints. Patient verbalized agreement and understanding with this treatment plan and discharge. Differential Diagnoses: Differential diagnosis Differential Diagnosis: influenza, headache, migraine, RSV, COVID-19 Lab Attestation: I reviewed the patient's lab results. Medical Decision Making Lab Data Labs: Lab Results 03/25/22 Range/Units 08:54 Influenza Type A (PCR) POSITIVE A (Negative) Influenza Type B (PCR) NEGATIVE (Negative) RSV RNA Qual (PCR) NEGATIVE (Negative) SARS-CoV-2 RNA (RT-PCR) NEGATIVE (Negative) Discharge Plan Discharge Clinical Impression: Influenza Patient Disposition: Home, Self-Care Additional Instructions: Follow up with your primary care provider. Return to the emergency department immediately if your symptoms worsen or if you develop any dizziness, shortness of breath, difficulty breathing, chest pain, blurry vision, loss of vision, nausea, vomiting, abdominal pain, fever, chills, back pain, or any other complaints. Prescriptions: New naproxen 500 mg tablet 500 mg PO BID 7 Days Qty: 14 0RF No Action gabapentin 600 mg tablet 1 tab PO TID sertraline 100 mg tablet 1 tab PO QAM dextroamphetamine-amphetamine 30 mg tablet 1 tab PO QAM trazodone 100 mg tablet 1 tab PO BEDTIME aripiprazole 2 mg tablet 1 tab PO QAM dextroamphetamine-amphetamine [Adderall] 30 mg tablet 30 mg PO DAILY Qty: 30 0RF Rx Instructions: Partial Fill upon patient request. hydroxyzine HCl 25 mg tablet 25 mg PO Q6-8H PRN (Reason: anxiety) Qty: 40 0RF [place] [facility] [place] [facility] [place] (Call to establish and follow up with a primary care provider. If you already have a primary care provider, please follow up with them. ) [facility] [place] [facility] [place] (Call to establish and follow up with a primary care provider. If you already have a primary care provider, please follow up with them. ) [facility] [place] [facility] [place] (Call to establish and follow up with a primary care provider. If you already have a primary care provider, please follow up with them. ) Stand Alone Forms: Work/School Release Interventions: ED Discharge Assessment Last Done: 03/25/22 10:42 Discharge Date/Time: 03/25/22 10:43 Print Language: [place]
[2022-03-25 10:11] LABS: Influenza A PCR POSITIVE (Negative); Influenza B PCR NEGATIVE (Negative); Resp Syncy Virus RNA Qual PCR NEGATIVE (Negative); SARS COV2 PCR INHOUSE NEGATIVE (Negative)
[2022-03-25] MEDS: Ketorolac Tromethamine 15 MG/ML VIAL IM (10:26)
== END 2022-03-25 10:43 | disposition home or self-care (01) ==
PROVIDERS: Emergency Provider Emergency Medicine
DX: J11.1 Influenza due to unidentified influenza virus with other respiratory manifestations (principal); R51.9 Headache, unspecified; Z20.822 Contact with and (suspected) exposure to COVID-19
CPT/HCPCS: 0241U; 96372; 99284; J1885

== ENCOUNTER 2022-03-31 08:37 | Emergency (ER) | payer OTHER, SELFPAY ==
[2022-03-31 08:41] VITALS: BP 125/85; PULSE 80; RESP 19; TEMP 36.6; O2SAT 98; BMI 42.8
[2022-03-31] MEDS: Ondansetron ODT 4 MG TAB.RAPDIS TRANSLINGU (10:38)
[2022-03-31 11:46] VITALS: BP 140/90; PULSE 67; RESP 18; TEMP 36.8; O2SAT 96
--- NOTE | 2022-03-31 11:47 | PC.NURSE ---
patient a&ox3, vss, pt c/o 8-12/22 left head migraine pt states she has nausea and photophobia as well, pt does have a history of migraines- pt takes otc excedrin, pt does not see a neurologist and is interested in having a referral, does not take prescribed medications for migraines.
--- NOTE | 2022-03-31 12:16 | ED_ITS ---
HPI - Headache General Chief Complaint: Headache Stated Complaint: Migraine Time Seen by Provider: 03/31/22 12:12 Source: patient Mode of arrival: ambulatory Limitations: no limitations History of Present Illness HPI Narrative: Patient states that she has a history of headache but last week she started with one sided headache but patient was flu A positive. The headache has persisted on left sided worse with lying down. MD elicited complaint: headache Onset (ago): week(s) Onset description: gradually Location: left and frontal Severity: moderate Quality & Timing: throbbing Associated symptoms: nausea, vomiting and photophobia Related Data Home Medications Medication Instructions Recorded Confirmed aripiprazole 2 mg tablet 1 tab PO QAM 10/02/21 10/02/21 dextroamphetamine-amphetamine 30 1 tab PO QAM 10/02/21 10/02/21 mg tablet gabapentin 600 mg tablet 1 tab PO TID 10/02/21 10/02/21 sertraline 100 mg tablet 1 tab PO QAM 10/02/21 10/02/21 trazodone 100 mg tablet 1 tab PO BEDTIME 10/02/21 10/02/21 Previous Rx's Medication Instructions Recorded dextroamphetamine-amphetamine 30 30 mg PO DAILY #30 tabs 12/13/21 mg tablet (Adderall) hydroxyzine HCl 25 mg tablet 25 mg PO Q6-8H PRN anxiety #40 tabs 12/13/21 naproxen 500 mg tablet 500 mg PO BID 7 days #14 tabs 03/25/22 naproxen 500 mg tablet (Naprosyn) 500 mg PO BID #20 tabs 03/31/22 Allergies Allergy/AdvReac Type Severity Reaction Status Date / Time No Known Allergies Allergy Verified 03/16/22 16:59 [No Known Allergies*] Review of Systems Review of Systems: Yes all other systems are reviewed and are negative Constitutional: Constitutional: Reports headache(s) ENT: Reports headache(s) Gastrointestinal: Gastrointestinal: Reports vomiting Neurologic: Reports headache(s) and Denies Sensory deficit (Neuro) PMFSH Past Medical History Medical History ADHD Anxiety Bipolar 1 disorder Social History Social History Alcohol intake: never Patient Tobacco Use Status: Never used Tobacco Smoked in Last 30 Days: No Use of substances other than those prescribed or required for medical reasons: Yes Substance Use Type: Marijuana Substance Use Frequency: Occasionally Advance Directives: No Advance Directives Information Provided: No Patient : No Physical Exam Vital Signs: Vital Signs: Last Vital Signs Temp 98.2 F 03/31/22 14:00 Pulse 55 03/31/22 14:00 Resp 18 03/31/22 14:00 BP 140/79 H 03/31/22 14:00 Pulse Ox 100 03/31/22 14:00 O2 Del Method 03/31/22 14:00 BMI result Body Mass Index 42.8 Const: General: healthy appearing Nutritional Appearance: obese Orientation/consciousness: oriented to person and patient oriented x3 Limitations: no limitations HEENT: Head: Yes normal to inspection Ears: external ears normal General nose exam: Normal external nose present Mouth: Normal oral and palatal mucosa present and oropharynx normal Throat: Yes posterior oropharynx normal Eyes: General: appearance normal, both eyes and all related structures Neck: Other: supple Neck: Yes normal visual inspection Chest: Chest palpation & inspection: normal inspection of the chest Resp: Auscultation: clear to auscultation bilaterally Cardio: Jugular venous distension: no JVD Rate: regular rate Rhythm: regular rhythm Heart sounds: S1 normal heart sound present and S2 normal heart sound present GI: Inspection: Yes normal to inspection Palpation (GI): Soft to palpation, nontender and No hepatosplenomegaly present Auscultation: normal bowel sounds : General: Yes no CVA tenderness Back/Spine/Pelvis: Back: no CVA tenderness Skin: Other: facial rash Neuro: General: oriented to person and patient oriented x3 Cranial nerves: Yes CN's II-XII intact bilaterally Motor exam (neuro): 5/5 motor strength p resent throughout Sensory Exam: No Sensory deficit (Neuro) Extrem: General: Yes normal to inspection Psych: Appearance: grossly normal Course Reevaluation(s) Reevaluation #1: Patient was sleeping feels better will dc home Time: 16:53 Medications Administered Discontinued Medications Generic Name Dose Route Start Last Admin Trade Name Freq PRN Reason Stop Dose Admin Diphenhydramine HCl 25 mg 03/31/22 14:32 03/31/22 14:40 Diphenhydramine Hcl 50 Mg/Ml Vial IVPUSH 03/31/22 14:33 25 mg ONCE ONE Administration Haloperidol Lactate 2.5 mg 03/31/22 14:32 03/31/22 14:40 Haloperidol Lactate 5 Mg/Ml Vial IVPUSH 03/31/22 14:33 2.5 mg ONCE ONE Administration Sodium Chloride 500 mls @ 500 mls/hr 03/31/22 12:30 03/31/22 13:49 Ns IV 03/31/22 13:29 Infused .Q1H JAYCOB Infusion Promethazine HCl 25 mg/ Sodium 51 mls @ 204 mls/hr 03/31/22 12:22 03/31/22 13:11 Chloride IV 03/31/22 12:23 Infused ONCE ONE Infusion Ketorolac Tromethamine 30 mg 03/31/22 12:22 03/31/22 12:55 Ketorolac Tromethamine 30 Mg/Ml Vial IVPUSH 03/31/22 12:23 30 mg ONCE ONE Administration Ondansetron HCl 4 mg 03/31/22 10:37 03/31/22 10:38 Ondansetron Odt 4 Mg Tab.Rapdis TRANSLINGU 03/31/22 10:38 4 mg ONCE ONE Administration Discharge Plan Discharge Clinical Impression: Migraine Patient Disposition: Home, Self-Care Instructions: Migraine Headache (ED) Prescriptions: New naproxen [Naprosyn] 500 mg tablet 500 mg PO BID Qty: 20 0RF No Action gabapentin 600 mg tablet 1 tab PO TID sertraline 100 mg tablet 1 tab PO QAM dextroamphetamine-amphetamine 30 mg tablet 1 tab PO QAM trazodone 100 mg tablet 1 tab PO BEDTIME aripiprazole 2 mg tablet 1 tab PO QAM naproxen 500 mg tablet 500 mg PO BID 7 Days Qty: 14 0RF dextroamphetamine-amphetamine [Adderall] 30 mg tablet 30 mg PO DAILY Qty: 30 0RF Rx Instructions: Partial Fill upon patient request. hydroxyzine HCl 25 mg tablet 25 mg PO Q6-8H PRN (Reason: anxiety) Qty: 40 0RF Referrals: Physician,None [Primary Care Provider] - 1 week
[2022-03-31] MEDS: 0.9 % Sodium Chloride 500 ML IV (12:49)
[2022-03-31] MEDS: Ketorolac Tromethamine 30 MG/ML VIAL IVPUSH (12:55)
--- NOTE | 2022-03-31 12:58 | PC.NURSE ---
iv inserted, pt medicated per order
[2022-03-31 14:00] VITALS: BP 140/79; PULSE 55; RESP 18; TEMP 36.8; O2SAT 100
--- NOTE | 2022-03-31 14:23 | PC.NURSE ---
patient c/o 8-12/22 headache, notified provider of continued headache
[2022-03-31] MEDS: diphenhydrAMINE HCL 50 MG/ML VIAL 25 MG IVPUSH (14:40)
[2022-03-31] MEDS: Haloperidol Lactate 5 MG/ML VIAL 2.5 MG IVPUSH (14:40)
--- NOTE | 2022-03-31 14:47 | PC.NURSE ---
patient medicated per order, vss, will continue to monitor
== END 2022-03-31 17:38 | disposition home or self-care (01) ==
PROVIDERS: Emergency Provider Emergency Medicine
DX: G43.909 Migraine, unspecified, not intractable, without status migrainosus (principal); R11.2 Nausea with vomiting, unspecified; Z79.899 Other long term (current) drug therapy
CPT/HCPCS: 96374; 96375; 99284; 99285; J1200; J1885; J2550

== ENCOUNTER 2022-06-20 11:49 | Emergency (ER) | payer OTHER, SELFPAY ==
[2022-06-20 11:49] VITALS: BP 152/92; PULSE 66; RESP 18; TEMP 35.9; O2SAT 97; BMI 42.8
--- NOTE | 2022-06-20 11:50 | ED.PSYCH ---
HPI - Psych General Chief Complaint: Psychiatric Symptoms <Edilma Sanz CNP - Last Filed: 06/20/22 11:56> Stated Complaint: Psych eval <Edilma Sanz CNP - Last Filed: 06/20/22 11:56> Time Seen by Provider: 06/20/22 12:25 <Edilma Sanz CNP - Last Filed: 06/20/22 11:56> Source: patient <Matilda Toscano NP - Last Filed: 06/20/22 17:58> Mode of arrival: ambulatory <Matilda Toscano NP - Last Filed: 06/20/22 17:58> Limitations: no limitations <Matilda Toscano NP - Last Filed: 06/20/22 17:58> History of Present Illness HPI Narrative: 27 yo female with a PMHx of migraines, anxiety, and bipolar 1 disorder, rosacea here with complaints of increasing depression over the last few months with vague suicidal thoughts with no plan. No HI, hallucinations, substance use. No physical complaints other than rosacea like rash on her face <Matilda Toscano NP - Last Filed: 06/20/22 17:58> Related Data Home Medications: Home Medications Medication Instructions Recorded Confirmed aripiprazole 2 mg tablet 1 tab PO QAM 10/02/21 10/02/21 dextroamphetamine-amphetamine 30 1 tab PO QAM 10/02/21 10/02/21 mg tablet gabapentin 600 mg tablet 1 tab PO TID 10/02/21 10/02/21 sertraline 100 mg tablet 1 tab PO QAM 10/02/21 10/02/21 trazodone 100 mg tablet 1 tab PO BEDTIME 10/02/21 10/02/21 Previous Rx's Medication Instructions Recorded dextroamphetamine-amphetamine 30 30 mg PO DAILY #30 tabs 12/13/21 mg tablet (Adderall) hydroxyzine HCl 25 mg tablet 25 mg PO Q6-8H PRN anxiety #40 tabs 12/13/21 naproxen 500 mg tablet 500 mg PO BID 7 days #14 tabs 03/25/22 naproxen 500 mg tablet (Naprosyn) 500 mg PO BID #20 tabs 03/31/22 <Edilma Sanz CNP - Last Filed: 06/20/22 11:56> Allergies/Adverse Reactions: Allergies Allergy/AdvReac Type Severity Reaction Status Date / Time No Known Allergies Allergy Verified 03/16/22 16:59 [No Known Allergies*] <Edilma Broussard [facility] - Last Filed: 06/20/22 11:56> Review of Systems Review of Systems: Yes all other systems are reviewed and are negative <Matilda Toscano NP - Last Filed: 06/20/22 17:58> Constitutional: Constitutional: Reports no additional constitutional complaints, Denies body ache(s), Denies chills, Denies fever(s), Denies headache(s) and Denies weakness <Matilda Toscano NP - Last Filed: 06/20/22 17:58> Eyes: Eyes: Reports no additional eye complaints and Denies change in vision <Matilda Toscano NP - Last Filed: 06/20/22 17:58> ENT: Reports system reviewed and no additional complaints, except as documented, Denies dizziness, Denies headache(s), Denies nasal congestion, Denies nasal discharge and Denies neck pain <Matilda Toscano NP - Last Filed: 06/20/22 17:58> Cardiovascular: Cardiovascular: Reports no additional cardiovascular complaints, Denies chest pain, Denies leg edema and Denies dyspnea <Matilda Toscano NP - Last Filed: 06/20/22 17:58> Respiratory: Respiratory: Reports no additional respiratory complaints, Denies cough and Denies dyspnea <Matilda Toscano NP - Last Filed: 06/20/22 17:58> Gastrointestinal: Gastrointestinal: Reports no additional gastrointestinal complaints, Denies abdominal pain, Denies diarrhea, Denies nausea and Denies vomiting <Matilda Toscano NP - Last Filed: 06/20/22 17:58> Genitourinary: Genitourinary: Reports no additional female genitourinary complaints and Denies urinary incontinence <Matilda Toscano [employer] S[employer]ING SPECIALIST - Last Filed: 06/20/22 17:58> Musculoskeletal: Musculoskeletal: Reports no additional musculoskeletal complaints, Denies back pain, Denies arthralgias, Denies joint swelling, Denies neck pain, Denies numbness and Denies tingling <Matilda Toscano NP - Last Filed: 06/20/22 17:58> Integumentary/Breasts: Skin/Breast: Reports system reviewed and no additional complaints, except as docu and Reports rash <Matilda Toscano NP - Last Filed: 06/20/22 17:58> Neurologic: Reports system reviewed and no additional complaints, except as documented, Denies Abnormal speech present, Denies dizziness, Denies headache(s), Denies numbness, Denies tingling and Denies weakness <Matilda Toscano NP - Last Filed: 06/20/22 17:58> Psychiatric: Psychiatric: Reports depression and Reports suicidal ideation <Matilda Toscano NP - Last Filed: 06/20/22 17:58> [facility] Past Medical History Attestation statement: The following information was validated with the patient. <Matilda Toscano NP - Last Filed: 06/20/22 17:58> Source: old records reviewed and nursing notes reviewed <Matilda Toscano NP - Last Filed: 06/20/22 17:58> Medical History: Medical History ADHD Anxiety Bipolar 1 disorder <Edilma Sanz CNP - Last Filed: 06/20/22 11:56> Social History Social History: Social History Alcohol intake: never Patient Tobacco Use Status: Never used Tobacco Substance Use Type: Marijuana Advance Directives: No Advance Directives Information Provided: Yes Healthcare Proxy: No Guardian: No <Edilma Sanz CNP - Last Filed: 06/20/22 11:56> Physical Exam Vital Signs: Vital Signs: Last Vital Signs Temp 96.6 F L 06/20/22 11:49 Pulse 66 06/20/22 11:49 Resp 18 06/20/22 11:49 BP 152/92 H 06/20/22 11:49 Pulse Ox 97 06/20/22 11:49 O2 Del Method 06/20/22 11:49 BMI result Body Mass Index 42.8 <Edilma Broussard [employer] - Last Filed: 06/20/22 11:56> Vital Signs: Last Vital Signs Temp 96.6 F L 06/20/22 11:49 Pulse 66 06/20/22 11:49 Resp 18 06/20/22 11:49 BP 152/92 H 06/20/22 11:49 Pulse Ox 97 06/20/22 11:49 O2 Del Method 06/20/22 11:49 BMI result Body Mass Index 42.8 <Matilda Toscano NP - Last Filed: 06/20/22 17:58> Const: General: cooperative, healthy appearing, comfortable and no acute distress <Matilda Toscano NP - Last Filed: 06/20/22 17:58> Orientation/consciousness: patient oriented x3 <Matilda Toscano NP - Last Filed: 06/20/22 17:58> Limitations: no limitations <Matilda Toscano NP - Last Filed: 06/20/22 17:58> HEENT: Head: Yes normal to inspection <Matilda Toscano NP - Last Filed: 06/20/22 17:58> Ears: hearing grossly normal bilaterally <Matilda Toscano NP - Last Filed: 06/20/22 17:58> General nose exam: Normal external nose present <Matilda Toscano NP - Last Filed: 06/20/22 17:58> Face and sinus: Yes normal facial exam <Matilda Toscano NP - Last Filed: 06/20/22 17:58> Mouth: Normal oral and palatal mucosa present <Matilda Toscano NP - Last Filed: 06/20/22 17:58> Throat: Yes posterior oropharynx normal <Matilda Toscano NP - Last Filed: 06/20/22 17:58> Eyes: General: appearance normal, both eyes and all related structures <Matilda Toscano NP - Last Filed: 06/20/22 17:58> Pupils: Equal, round and reactive pupils present <Matilda Toscano NP - Last Filed: 06/20/22 17:58> Neck: Neck: Yes normal visual inspection <Matilda Toscano TALENT SOURCING SPECIALIST - Last Filed: 06/20/22 17:58> Chest: Chest palpation & inspection: normal inspection of the chest <Matilda Toscano TALENT SOURCING SPECIALIST - Last Filed: 06/20/22 17:58> Resp: Effort & Inspection: normal respiratory effort <Matilda Toscano TAL[employer] SOURCING SPECIALIST - Last Filed: 06/20/22 17:58> Auscultation: clear to auscultation bilaterally <Matilda Toscano TALENT SOURCING SPECIALIST - Last Filed: 06/20/22 17:58> Cardio: Rate: regular rate <Matilda Toscano TALENT SOURCING SPECIALIST - Last Filed: 06/20/22 17:58> Rhythm: regular rhythm <Matilda Toscano TALENT SOURCING SPECIALIST - Last Filed: 06/20/22 17:58> Peripheral pulses: Peripheral pulses 2+ throughout <Matilda Toscano TALENT SOURCING SPECIALIST - Last Filed: 06/20/22 17:58> GI: Inspection: Yes normal to inspection <Matilda Toscano TALENT SOURCING SPECIALIST - Last Filed: 06/20/22 17:58> Palpation (GI): Soft to palpation and nontender <Matilda Toscano TALENT SOURCING SPECIALIST - Last Filed: 06/20/22 17:58> Auscultation: normal bowel sounds <Matilda Toscano TALENT SOURCING SPECIALIST - Last Filed: 06/20/22 17:58> Back/Spine/Pelvis: Thoracic/Lumbar Spine: thoracic and lumbar spine normal to inspection <Matilda Toscano TALENT SOURCING SPECIALIST - Last Filed: 06/20/22 17:58> Skin: General skin exam: no rashes or lesions noted <Matilda Toscano TALENT SOURCING SPECIALIST - Last Filed: 06/20/22 17:58> Neuro: General: patient oriented x3, no focal motor deficits and normal sensation to monofilament <Matilda Toscano TALENT SOURCING SPECIALIST - Last Filed: 06/20/22 17:58> Cranial nerves: Yes Equal, round and reactive pupils present <Matilda Toscano TALENT SOURCING SPECIALIST - Last Filed: 06/20/22 17:58> Cognition (Neuro): normal cognition <Matilda Toscano TALENT SOURCING SPECIALIST - Last Filed: 06/20/22 17:58> Speech: No Abnormal speech present <Matilda Toscano NP - Last Filed: 06/20/22 17:58> Gait exam (Neuro): Normal gait present <Matilda Toscano NP - Last Filed: 06/20/22 17:58> Motor exam (neuro): 5/5 motor strength present throughout <Matilda Toscano NP - Last Filed: 06/20/22 17:58> Extrem: General: Yes normal to inspection <Matilda Toscano NP - Last Filed: 06/20/22 17:58> Course Course Course Narrative: This is an RME: Additional HPI, ROS, PE not included below will be deferred to primary provider. Patient is a 27-year-old female pmhx of bipolar disorder, anxiety, ADHD who presents emergency department for mental health . Reports severe ADHD, with depression recently. States that she has not left her bed in 2 months. Reports SI emotionally , but I know I wouldn't do it . States she is not on any medications since summer 2021. Does not have any psychiatrist of therapist. Dneies past history of SI. Smokes marijuana, denies any other recreational drug or alcohol usage. Plan: labs, hCG, covid screening, moved to behavioral health pod <Edilma Sanz CNP - Last Filed: 06/20/22 11:56> Reevaluation(s) Reevaluation #1: Pending care team evaluation. Placed in physician obs pending disposition. Sign out to night team pending above. <Matilda Toscano NP - Last Filed: 06/20/22 17:58> Medications Administered Discontinued Medications Generic Name Dose Route Start Last Admin Trade Name Freq PRN Reason Stop Dose Admin Lorazepam 1 mg 06/20/22 17:05 06/20/22 17:11 Lorazepam 1 Mg Tablet PO 06/20/22 17:06 1 mg ONCE ONE Administration <Edilma Sanz CNP - Last Filed: 06/20/22 11:56> Medications Administered Discontinued Medications Generic Name Dose Route Start Last Admin Trade Name Freq PRN Reason Stop Dose Admin Lorazepam 1 mg 06/20/22 17:05 06/20/22 17:11 Lorazepam 1 Mg Tablet PO 06/20/22 17:06 1 mg ONCE ONE Administration <Matilda Toscano NP - Last Filed: 06/20/22 17:58> Medical Decision Making Medical Decision Making MDM Narrative: 27-year-old female here with complaints of increasing depression, vague suicidal thoughts. No concern for acute ingestion or trauma Will obtain labs, drug screen, COVID screen, crisis consultation <Matilda Toscano NP - Last Filed: 06/20/22 17:58> Differential Diagnosis Differential Diagnoses: The differential diagnosis associated with the presentation includes <Matilda Toscano NP - Last Filed: 06/20/22 17:58> Depression <Matilda Toscano NP - Last Filed: 06/20/22 17:58> Lab Data Result Diagrams: 06/20/22 12:01 06/20/22 12:01 <Edilma Sanz CNP - Last Filed: 06/20/22 11:56> Labs: Lab Results 06/20/22 06/20/22 06/20/22 Range/Units 12:01 12:01 12:01 WBC 7.3 (4.8-10.8) X10*3/uL RBC 4.31 (4.20-5.50) X10*6/uL Hgb 12.2 (12.0-16.0) g/dl Hct 37.2 (37.0-47.0) % MCV 86.3 (80.0-98.0) fL MCH 28.3 (27.0-33.0) pg MCHC 32.8 (31.0-35.0) g/dl RDW 13.3 (11.0-16.0) % Plt Count 272 (160-400) X10*3/uL MPV 9.4 (9.4-12.3) fL Immature Gran % (Auto) 0.1 (0.0-0.4) % Neut % (Auto) 60.4 (45-73) % Lymph % (Auto) 34.7 (20-40) % [place] % (Auto) 3.7 (2-11) % Eos % (Auto) 0.8 (0-4) % Baso % (Auto) 0.3 (0-2) % Lymph # (Auto) 2.5 (1.2-4.9) X10*3/uL [place] # (Auto) 0.3 (0.1-1.2) X10*3/uL Eos # (Auto) 0.1 (0.0-0.4) X10*3/uL Baso # (Auto) 0.0 (0.0-0.2) X10*3/uL Abs Immat Gran (auto) 0.01 (0.00-0.03) X10*3/uL Absolute Neuts (auto) 4.4 (2.0-8.3) x10*3/uL Absolute Nucleated RBC 0.000 (0.0-0.012) X10*3/uL Nucleated RBC % (auto) 0.0 (0.0-0.2) /100WBC Sodium 141 (135-145) mmol/L Potassium 4.0 (3.3-5.1) mmol/L Chloride 106 (96-108) mmol/L Carbon Dioxide 30 H (22-29) mmol/L Anion Gap 9 L (12-20) BUN 10 (9-16) mg/dL Creatinine 0.69 (0.5-1.4) mg/dL Estim Creat Clear Calc 175.4 Estimated GFR > 60 Random Glucose 111 (60-115) mg/dL Calcium 8.9 D (8.4-10.2) mg/dL Total Bilirubin 0.3 (0.0-1.0) mg/dL AST 22 (5-31) U/L ALT 23 (0-31) U/L Alkaline Phosphatase 76 (39-117) U/L Total Protein 6.7 (6.5-8.0) g/dL Albumin 3.8 (3.5-5.0) g/dL Urine Color Urine Appearance Urine pH (5.0-9.0) Ur Specific [place] (1.005-1.025) Urine Protein (Neg-Trace) mg/dL Urine Glucose (UA) (Negative) mg/dL Urine Ketones (Negative) mg/dL Urine Blood (Negative) Urine Nitrite (Negative) Ur Leukocyte Esterase (Negative) Urine Test (NEGATIVE) Urine Opiates Screen (Not Detect) Urine Fentanyl Screen (Not Detect) Ur Barbiturates Screen (Not Detect) Ur Phencyclidine Scrn (Not Detect) Ur Amphetamines Screen (Not Detect) U Benzodiazepines Scrn (Not Detect) Urine Cocaine Screen (Not Detect) U Marijuana (THC) Screen (Not Detect) Ethyl Alcohol < 10 mg/dL COVID-19 (AMILCAR) Negative (Negative) COVID-19 Clin Com See Note 06/20/22 06/20/22 06/20/22 Range/Units 12:29 12:29 12:29 WBC (4.8-10.8) X10*3/uL RBC (4.20-5.50) X10*6/uL Hgb (12.0-16.0) g/dl Hct (37.0-47.0) % MCV (80.0-98.0) fL MCH (27.0-33.0) pg MCHC (31.0-35.0) g/dl RDW (11.0-16.0) % Plt Count (160-400) X10*3/uL MPV (9.4-12.3) fL Immature Gran % (Auto) (0.0-0.4) % Neut % (Auto) (45-73) % Lymph % (Auto) (20-40) % [place] % (Auto) (2-11) % Eos % (Auto) (0-4) % Baso % (Auto) (0-2) % Lymph # (Auto) (1.2-4.9) X10*3/uL [place] # (Auto) (0.1-1.2) X10*3/uL Eos # (Auto) (0.0-0.4) X10*3/uL Baso # (Auto) (0.0-0.2) X10*3/uL Abs Immat Gran (auto) (0.00-0.03) X10*3/uL Absolute Neuts (auto) (2.0-8.3) x10*3/uL Absolute Nucleated RBC (0.0-0.012) X10*3/uL Nucleated RBC % (auto) (0.0-0.2) /100WBC Sodium (135-145) mmol/L Potassium (3.3-5.1) mmol/L Chloride (96-108) mmol/L Carbon Dioxide (22-29) mmol/L Anion Gap (12-20) BUN (9-16) mg/dL Creatinine (0.5-1.4) mg/dL Estim Creat Clear Calc Estimated GFR Random Glucose (60-115) mg/dL Calcium (8.4-10.2) mg/dL Total Bilirubin (0.0-1.0) mg/dL AST (5-31) U/L ALT (0-31) U/L Alkaline Phosphatase (39-117) U/L Total Protein (6.5-8.0) g/dL Albumin (3.5-5.0) g/dL Urine Color Yellow Urine Appearance Clear Urine pH 7.5 (5.0-9.0) Ur Specific [place] 1.020 (1.005-1.025) Urine Protein Negative (Neg-Trace) mg/dL Urine Glucose (UA) Negative (Negative) mg/dL Urine Ketones Negative (Negative) mg/dL Urine Blood Negative (Negative) Urine Nitrite Negative (Negative) Ur Leukocyte Esterase Negative (Negative) Urine Test NEGATIVE (NEGATIVE) Urine Opiates Screen Not Detected (Not Detect) Urine Fentanyl Screen Not Detected (Not Detect) Ur Barbiturates Screen Not Detected (Not Detect) Ur Phencyclidine Scrn Not Detected (Not Detect) Ur Amphetamines Screen Not Detected (Not Detect) U Benzodiazepines Scrn Not Detected (Not Detect) Urine Cocaine Screen Not Detected (Not Detect) U Marijuana (THC) Screen POSITIVE H (Not Detect) Ethyl Alcohol mg/dL COVID-19 (AMILCAR) (Negative) COVID-19 Clin Com <Edilma Sanz, [employer]ANT - Last Filed: 06/20/22 11:56> Lab Results 06/20/22 06/20/22 06/20/22 Range/Units 12:01 12:01 12:01 WBC 7.3 (4.8-10.8) X10*3/uL RBC 4.31 (4.20-5.50) X10*6/uL Hgb 12.2 (12.0-16.0) g/dl Hct 37.2 (37.0-47.0) % MCV 86.3 (80.0-98.0) fL MCH 28.3 (27.0-33.0) pg MCHC 32.8 (31.0-35.0) g/dl RDW 13.3 (11.0-16.0) % Plt Count 272 (160-400) X10*3/uL MPV 9.4 (9.4-12.3) fL Immature Gran % (Auto) 0.1 (0.0-0.4) % Neut % (Auto) 60.4 (45-73) % Lymph % (Auto) 34.7 (20-40) % [place] % (Auto) 3.7 (2-11) % Eos % (Auto) 0.8 (0-4) % Baso % (Auto) 0.3 (0-2) % Lymph # (Auto) 2.5 (1.2-4.9) X10*3/uL [place] # (Auto) 0.3 (0.1-1.2) X10*3/uL Eos # (Auto) 0.1 (0.0-0.4) X10*3/uL Baso # (Auto) 0.0 (0.0-0.2) X10*3/uL Abs Immat Gran (auto) 0.01 (0.00-0.03) X10*3/uL Absolute Neuts (auto) 4.4 (2.0-8.3) x10*3/uL Absolute Nucleated RBC 0.000 (0.0-0.012) X10*3/uL Nucleated RBC % (auto) 0.0 (0.0-0.2) /100WBC Sodium 141 (135-145) mmol/L Potassium 4.0 (3.3-5.1) mmol/L Chloride 106 (96-108) mmol/L Carbon Dioxide 30 H (22-29) mmol/L Anion Gap 9 L (12-20) BUN 10 (9-16) mg/dL Creatinine 0.69 (0.5-1.4) mg/dL Estim Creat Clear Calc 175.4 Estimated GFR > 60 Random Glucose 111 (60-115) mg/dL Calcium 8.9 D (8.4-10.2) mg/dL Total Bilirubin 0.3 (0.0-1.0) mg/dL AST 22 (5-31) U/L ALT 23 (0-31) U/L Alkaline Phosphatase 76 (39-117) U/L Total Protein 6.7 (6.5-8.0) g/dL Albumin 3.8 (3.5-5.0) g/dL Urine Color Urine Appearance Urine pH (5.0-9.0) Ur Specific [place] (1.005-1.025) Urine Protein (Neg-Trace) mg/dL Urine Glucose (UA) (Negative) mg/dL Urine Ketones (Negative) mg/dL Urine Blood (Negative) Urine Nitrite (Negative) Ur Leukocyte Esterase (Negative) Urine Test (NEGATIVE) Urine Opiates Screen (Not Detect) Urine Fentanyl Screen (Not Detect) Ur Barbiturates Screen (Not Detect) Ur Phencyclidine Scrn (Not Detect) Ur Amphetamines Screen (Not Detect) U Benzodiazepines Scrn (Not Detect) Urine Cocaine Screen (Not Detect) U Marijuana (THC) Screen (Not Detect) Ethyl Alcohol < 10 mg/dL COVID-19 (AMILCAR) Negative (Negative) COVID-19 Clin Com See Note 06/20/22 06/20/22 06/20/22 Range/Units 12:29 12:29 12:29 WBC (4.8-10.8) X10*3/uL RBC (4.20-5.50) X10*6/uL Hgb (12.0-16.0) g/dl Hct (37.0-47.0) % MCV (80.0-98.0) fL MCH (27.0-33.0) pg MCHC (31.0-35.0) g/dl RDW (11.0-16.0) % Plt Count (160-400) X10*3/uL MPV (9.4-12.3) fL Immature Gran % (Auto) (0.0-0.4) % Neut % (Auto) (45-73) % Lymph % (Auto) (20-40) % [place] % (Auto) (2-11) % Eos % (Auto) (0-4) % Baso % (Auto) (0-2) % Lymph # (Auto) (1.2-4.9) X10*3/uL [place] # (Auto) (0.1-1.2) X10*3/uL Eos # (Auto) (0.0-0.4) X10*3/uL Baso # (Auto) (0.0-0.2) X10*3/uL Abs Immat Gran (auto) (0.00-0.03) X10*3/uL Absolute Neuts (auto) (2.0-8.3) x10*3/uL Absolute Nucleated RBC (0.0-0.012) X10*3/uL Nucleated RBC % (auto) (0.0-0.2) /100WBC Sodium (135-145) mmol/L Potassium (3.3-5.1) mmol/L Chloride (96-108) mmol/L Carbon Dioxide (22-29) mmol/L Anion Gap (12-20) BUN (9-16) mg/dL Creatinine (0.5-1.4) mg/dL Estim Creat Clear Calc Estimated GFR Random Glucose (60-115) mg/dL Calcium (8.4-10.2) mg/dL Total Bilirubin (0.0-1.0) mg/dL AST (5-31) U/L ALT (0-31) U/L Alkaline Phosphatase (39-117) U/L Total Protein (6.5-8.0) g/dL Albumin (3.5-5.0) g/dL Urine Color Yellow Urine Appearance Clear Urine pH 7.5 (5.0-9.0) Ur Specific [place] 1.020 (1.005-1.025) Urine Protein Negative (Neg-Trace) mg/dL Urine Glucose (UA) Negative (Negative) mg/dL Urine Ketones Negative (Negative) mg/dL Urine Blood Negative (Negative) Urine Nitrite Negative (Negative) Ur Leukocyte Esterase Negative (Negative) Urine Test NEGATIVE (NEGATIVE) Urine Opiates Screen Not Detected (Not Detect) Urine Fentanyl Screen Not Detected (Not Detect) Ur Barbiturates Screen Not Detected (Not Detect) Ur Phencyclidine Scrn Not Detected (Not Detect) Ur Amphetamines Screen Not Detected (Not Detect) U Benzodiazepines Scrn Not Detected (Not Detect) Urine Cocaine Screen Not Detected (Not Detect) U Marijuana (THC) Screen POSITIVE H (Not Detect) Ethyl Alcohol mg/dL COVID-19 (AMILCAR) (Negative) COVID-19 Clin Com <Matilda Toscano NP - Last Filed: 06/20/22 17:58> Discharge Plan Discharge Clinical Impression: Depression <Edilma Sanz CNP - Last Filed: 06/20/22 11:56> Patient Disposition: Still a Patient <Edilma Sanz CNP - Last Filed: 06/20/22 11:56> Prescriptions: No Action gabapentin 600 mg tablet 1 tab PO TID sertraline 100 mg tablet 1 tab PO QAM dextroamphetamine-amphetamine 30 mg tablet 1 tab PO QAM trazodone 100 mg tablet 1 tab PO BEDTIME aripiprazole 2 mg tablet 1 tab PO QAM naproxen 500 mg tablet 500 mg PO BID 7 Days Qty: 14 0RF dextroamphetamine-amphetamine [Adderall] 30 mg tablet 30 mg PO DAILY Qty: 30 0RF Rx Instructions: Partial Fill upon patient request. hydroxyzine HCl 25 mg tablet 25 mg PO Q6-8H PRN (Reason: anxiety) Qty: 40 0RF naproxen [Naprosyn] 500 mg tablet 500 mg PO BID Qty: 20 0RF <Edilma Sanz CNP - Last Filed: 06/20/22 11:56> Interventions: [place]-Suicide Risk Severity Scale Last Done: 06/20/22 11:57 <Edilma Sanz CNP - Last Filed: 06/20/22 11:56>
[2022-06-20 12:12] LABS: MANUAL DIFF FLAG NO
[2022-06-20 12:15] LABS: Basophils Percent Auto 0.3 % (0-2); Eosinophils Absolute Auto 0.1 X10*3/uL (0.0-0.4); Eosinophils Percent Auto 0.8 % (0-4); Hematocrit 37.2 % (37.0-47.0); Hemoglobin 12.2 g/dl (12.0-16.0); Imm Gran Abs Auto 0.01 X10*3/uL (0.00-0.03); Imm Gran Pct Auto 0.1 % (0.0-0.4); Lymphocytes Absolute Auto 2.5 X10*3/uL (1.2-4.9); Lymphocytes Percent Auto 34.7 % (20-40); Mean Corpuscular HGB Conc 32.8 g/dl (31.0-35.0); Mean Corpuscular Hemoglobin 28.3 pg (27.0-33.0); Mean Corpuscular Volume 86.3 fL (80.0-98.0); Mean Platelet Volume 9.4 fL (9.4-12.3); Monocytes Absolute Auto 0.3 X10*3/uL (0.1-1.2); Monocytes Percent Auto 3.7 % (2-11); Neutrophils Absolute Auto 4.4 x10*3/uL (2.0-8.3); Neutrophils Percent Auto 60.4 % (45-73); Platelet Count 272 X10*3/uL (160-400); Red Blood Count 4.31 X10*6/uL (4.20-5.50); Red Cell Distribution Width 13.3 % (11.0-16.0); White Blood Count 7.3 X10*3/uL (4.8-10.8)
[2022-06-20 12:32] LABS: COVID-19 Test Negative (Negative); IDNOW Serial# 55D5AD1C
[2022-06-20 12:34] LABS: Alanine Aminotransferase 23 U/L (0-31); Albumin Level 3.8 g/dL (3.5-5.0); Alkaline Phosphatase 76 U/L (39-117); Anion Gap 9 (12-20); Aspartate Amino Transferase 22 U/L (5-31); Bilirubin Total 0.3 mg/dL (0.0-1.0); Blood Urea Nitrogen 10 mg/dL (9-16); Calcium 8.9 mg/dL (8.4-10.2); Carbon Dioxide 30 mmol/L (22-29); Chloride 106 mmol/L (96-108); Creatinine Clr Calc Pharmacy 175.4; Estimated Glomerular Filt Rate > 60; Ethanol < 10 mg/dL; Glucose Random 111 mg/dL (60-115); Sodium 141 mmol/L (135-145); Total Protein 6.7 g/dL (6.5-8.0)
[2022-06-20 12:39] LABS: Appearance Urine Clear; Color Urine Yellow; Glucose Urine UA Negative (Negative); Leukocyte Esterase Urine Negative (Negative); Nitrite Urine Negative (Negative); PH 7.5 (5.0-9.0); UPreg QC Valid YES; Urine Blood Negative (Negative); Urine Ketones Negative (Negative); Urine Pregnancy NEGATIVE (NEGATIVE); Urine Protein Negative (Neg-Trace)
[2022-06-20 14:46] LABS: Amphetamine Screen Urine Not Detected (Not Detect); Barbiturates, Urine Not Detected (Not Detect); Benzodiazepines Screen Urine Not Detected (Not Detect); Cannabinoid Screen Urine POSITIVE (Not Detect); Cocaine Screen Urine Not Detected (Not Detect); Fentanyl, urine Not Detected (Not Detect); Opiate Screen Urine Not Detected (Not Detect); Phencyclidine Screen Urine Not Detected (Not Detect)
[2022-06-20] MEDS: LORazepam 1 MG TABLET PO (17:11)
[2022-06-20 21:43] VITALS: BP 125/75; PULSE 82; RESP 16; TEMP 37.1; O2SAT 97
[2022-06-20] MEDS: traZODone HCL 50 MG TABLET PO (21:43)
[2022-06-20 23:12] VITALS: BP 118/74; PULSE 74; RESP 16; TEMP 37.1; O2SAT 96
[2022-06-21] MEDS: LORazepam 1 MG TABLET 2 MG PO ×2 (00:18→13:01)
--- NOTE | 2022-06-21 06:17 | PC.NURSE ---
Patient slept through the night, no distress observed/reported, behavior non concerning, disposition per care team is section 12 inpatient bed search, pre-accepted to M3/5, medication rec completed/currently not on any medication, Trazodone 50 mg @ 2142 and Ativan 2 mg PO @ 8 with + effect, VSS, will continue to monitor
[2022-06-21 11:53] VITALS: BP 142/87; PULSE 80; RESP 16; TEMP 36.7; O2SAT 99
[2022-06-21] MEDS: metroNIDAZOLE 0.75 % Gel 45 GM TUBE 1 APPL TOPICAL (13:32)
[2022-06-21 14:09] VITALS: BP 135/92; PULSE 83; RESP 18; TEMP 36.7; O2SAT 98
[2022-06-21] MEDS: OLANZapine ODT 10 MG TAB.RAPDIS 5 MG TRANSLINGU (17:36)
--- NOTE | 2022-06-21 18:54 | PC.NURSE ---
Pt was upset when learning her pre-admission status to M3/M5 was revoked and there was no longer a bed for her upstairs. She learned her bed search was going to be expanding outside this hospital. She became very agitated, was attempting to knock on CARE team door and lifted up a chair from her room. Security was called. Pt attempting to elope however redirected back into pod. Pt apologetic to RN stating she is just frustrated and wants answers regarding her bed status being revoked at [facility].
[2022-06-21] MEDS: OLANZapine 5 MG TABLET PO (19:52)
--- NOTE | 2022-06-22 06:27 | PC.NURSE ---
Patient slept through the night, no distress observed/reported, medication compliant, disposition per care team is voluntary inpatient bed search, behavior non concerning but unpredictable, VSS, will continue to monitor.
[2022-06-22 06:34] VITALS: BP 102/54; PULSE 80; RESP 17; TEMP 36.8; O2SAT 96
--- NOTE | 2022-06-22 09:56 | PC.NURSE ---
Patient resting on bed with eyes closed at this time.
--- NOTE | 2022-06-22 12:49 | MHC.CARE ---
[facility] adult inpt bedsearch exhausted.
== END 2022-06-22 15:51 | disposition home or self-care (01) ==
PROVIDERS: Nurse Practitioner Family; Emergency Provider Emergency Medicine Emergency Medical Services
DX: F33.1 Major depressive disorder, recurrent, moderate (principal); R45.851 Suicidal ideations; F41.1 Generalized anxiety disorder; F43.0 Acute stress reaction; Z20.822 Contact with and (suspected) exposure to COVID-19; Z20.828 Contact with and (suspected) exposure to other viral communicable diseases; Z79.899 Other long term (current) drug therapy
CPT/HCPCS: 80053; 80307; 81003; 81025; 82077; 85025; 87635; 99284; 99285; S9485

== ENCOUNTER 2022-07-01 12:30 | Outpatient (RCR) | payer OTHER, SELFPAY ==
[2022-06-28 10:48] VITALS: BP 104/68; PULSE 80; TEMP 37.1
[2022-06-28 10:49] VITALS: BMI 43.4
--- NOTE | 2022-06-28 13:41 | HO.OPPROGNO ---
Subjective Subjective Reason For Visit: depression Diagnostics Vital Signs (24Hr): Vital Signs - 24 hr 06/28/22 10:48 Temperature 98.7 F Pulse Rate 80 Blood Pressure 104/68 BMI result Body Mass Index 43.4 Discharge Plan Discharge Attending provider: Piyush Castillo Medications: No Action clonidine HCl 0.1 mg Tablet 0.1 mg PO BID PRN (Reason: Anxiety) lamotrigine [Lamictal] 25 mg Tablet 25 mg PO DAILY acetaminophen 500 mg Capsule 1,000 mg PO BID PRN (Reason: Pain) bupropion HCl [Wellbutrin XL] 150 mg Tablet Extended Release 24 Hr 150 mg PO QAM Rx Instructions: Take 150 mg daily on 06/25-07/01 then increase to 300 mg daily. gabapentin 300 mg Tablet 300 mg PO DAILY atomoxetine [Strattera] 80 mg Capsule 80 mg PO DAILY Assessment & Plan Total time managing care of this patient today ____ minutes.
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
--- NOTE | 2022-06-28 15:42 | PC.ADMIT ---
Patient is a 27 year old female who self referred to PHP d/t increased depression sxs. Patient reports she has low self worth and has been spending the last 2 months in bed. Stated she moved back in with her parents last August as she was living in [place] with her . She reports getting a divorce and losing custody of her now 4 year old son. Patient [facility] to [facility] and was started on psychiatric medications. She reports she binge drinks ETOH once a month drinking a big bottle of Sangria reporting history of blacking out. She also reports vaping marijuana daily however has stopped using since being on medication as she stated she wants to give the medication a chance to work. Reports last use of Marijuana was last Friday. See Integrative Assessment for more information. Patient is alert and oriented x4. Calm and cooperative. Reports passive SI, denied plan or intent to kill herself. Gave Poppy a copy of her safety plan if needed and reviewed it with her. Medications reconciled with patient and [facility] ACCS discharge paperwork. Patient reports taking medications as prescribed.
--- NOTE | 2022-07-02 09:36 | PC.NURSE ---
Patient called the program and left a message stating she did not think the program was for her. I called Poppy back to F/U however her voice mail box was full and unable to leave a message. [facility] staff is aware.
== END 2022-07-01 23:59 | disposition left against medical advice (07) ==
LOC: HO.PHPA 12:30
PROVIDERS: Visit Provider Psychiatry & Neurology Psychiatry
DX: F31.81 Bipolar II disorder (principal); F43.10 Post-traumatic stress disorder, unspecified; Z79.899 Other long term (current) drug therapy
CPT/HCPCS: 90791; 90792; 90853

== ENCOUNTER 2022-09-12 20:04 | Emergency (ER) | payer OTHER, SELFPAY ==
[2022-09-12 20:31] VITALS: BP 173/88; PULSE 83; RESP 20; TEMP 36.7; O2SAT 97; BMI 45.5
[2022-09-12 20:36] VITALS: RESP 20
--- NOTE | 2022-09-12 21:32 | ED.NECK ---
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 No weakness, no numbness. Related Data Home Medications Medication Instructions Recorded Confirmed acetaminophen 500 mg capsule 1,000 mg PO BID PRN Pain 06/28/22 06/28/22 atomoxetine 80 mg capsule 80 mg PO DAILY 06/28/22 06/28/22 (Strattera) bupropion HCl 150 mg 24 hr tablet, 150 mg PO QAM 06/28/22 06/28/22 extended release (Wellbutrin XL) clonidine HCl 0.1 mg tablet 0.1 mg PO BID PRN Anxiety 06/28/22 06/28/22 gabapentin 300 mg tablet 300 mg PO DAILY 06/28/22 06/28/22 lamotrigine 25 mg tablet (Lamictal) 25 mg PO DAILY 06/28/22 06/28/22 Previous Rx's Medication Instructions Recorded cyclobenzaprine 10 mg tablet 10 mg PO TID PRN muscle spasm #14 09/12/22 tabs ibuprofen 600 mg tablet 600 mg PO Q8H PRN pain #10 tabs 09/12/22 Allergies Allergy/AdvReac Type Severity Reaction Status Date / Time No Known Allergies Allergy Verified 09/12/22 20:36 [No Known Allergies*] Review of Systems Review of Systems: All other systems are reviewed and are negative Constitutional: Reports as per HPI and Reports no additional constitutional complaints Eyes: Reports as per HPI and Reports no additional eye complaints Reports system reviewed and no additional complaints, except as documented Cardiovascular: Reports as per HPI and Reports no additional cardiovascular complaints Respiratory: Reports as per HPI and Reports no additional respiratory complaints Gastrointestinal: Reports as per HPI and Reports no additional gastrointestinal complaints Genitourinary: Reports no additional female genitourinary complaints Musculoskeletal: Reports no additional musculoskeletal complaints Skin/Breast: Reports system reviewed and no additional complaints, except as docu Psychiatric: Reports no additional psychiatric complaints Endocrine: Reports no additional endocrine complaints Hematologic/Lymphatic: Reports no additional hematologic/lymphatic complaints Allergic/Immunologic: Reports no additional allergic/immunologic complaints Reports system reviewed and no additional complaints, except as documented and Reports Abnormal speech present [facility] Past Medical History Medical History ADHD Anxiety Bipolar 1 disorder Bipolar II disorder in full remission delivery delivered Post traumatic stress disorder (PTSD) Social History Social History Household Members: Family Alcohol intake: never Patient Tobacco Use Status: Never used Tobacco Smoked in Last 30 Days: No Use of substances other than those prescribed or required for medical reasons: Yes Substance Use Type: Marijuana Substance Use Frequency: Daily Advance Directives: No Advance Directives Information Provided: No Physical Exam Vital Signs: Vital Signs: Last Vital Signs Temp 98.0 F 09/12/22 20:31 Pulse 83 09/12/22 20:31 Resp 20 09/12/22 20:36 BP 173/88 H 09/12/22 20:31 Pulse Ox 97 09/12/22 20:31 O2 Del Method Room Air 09/12/22 20:31 BMI result Body Mass Index 45.5 Vital signs have been reviewed as appeared to be correct. Blood pressure normal. Heart rate normal. Respiration rate normal. Temperature normal. Oxygen saturation normal. Appearance: Alert. Oriented X3. No acute distress. Head: Normal external exam. Normocephalic. Atraumatic. No Lester signs noted. No raccoon eyes noted Eyes: PERRLA. EOMI. Conjunctiva and sclera normal. Eyelids normal. ENT: TM's Normal. Pharynx normal. Uvula midline. Moist mucous membranes. No trismus noted. No drooling noted. No muffled voice noted. Neck: Normal inspection. Neck supple. FROM. No adenopathy. Thyroid Normal. No meningeal signs. No neck mass noted. Left paraspinous muscle spasm, no step-off, no deformity of the cervical spine. CVS: Normal heart rate and rhythm. Heart sound normal. No murmurs noted. Pulses normal throughout. Respiratory: No respiratory distress. Painless inspiration. Breath sounds normal. No wheezes/rales/rhonchi noted. Chest nontender. No accessory muscle usage noted or decreased air movement noted. Abdomen: Soft and nontender. Bowel sounds normal in all 4 quadrants. No distention noted. No organomegaly noted. No visible injury noted. Back: No CVA tenderness. Full range of motion noted. Skin: Skin warm and dry. Normal skin color. Normal skin turgor. No rashes/lesions/lacerations noted. Extremities: No lower extremity edema. Extremities exhibit normal range of motion. Extremities nontender. Neuro: Oriented X 3. Cranial nerve exam: II-XII are grossly intact No motor deficit. No sensory deficit. Reflexes normal. Course Course Course Narrative: 27-year-old female with left cervical muscle sprain will recommend rest, change the nature of the job, muscle relaxant, NSAIDs. Medical Decision Making Differential Diagnosis Differential Diagnoses: The differential diagnosis associated with the presentation includes (Left cervical muscle sprain, myofascial cervical pain, cervical radiculopathy.) Discharge Plan Discharge Clinical Impression: Strain of neck muscle Patient Disposition: Home, Self-Care Instructions: Cervical Sprain (ED) Prescriptions: New cyclobenzaprine 10 mg tablet 10 mg PO TID PRN (Reason: muscle spasm) Qty: 14 0RF ibuprofen 600 mg tablet 600 mg PO Q8H PRN (Reason: pain) Qty: 10 0RF No Action clonidine HCl 0.1 mg Tablet 0.1 mg PO BID PRN (Reason: Anxiety) lamotrigine [Lamictal] 25 mg Tablet 25 mg PO DAILY acetaminophen 500 mg Capsule 1,000 mg PO BID PRN (Reason: Pain) bupropion HCl [Wellbutrin XL] 150 mg Tablet Extended Release 24 Hr 150 mg PO QAM Rx Instructions: Take 150 mg daily on 06/25-07/01 then increase to 300 mg daily. gabapentin 300 mg Tablet 300 mg PO DAILY atomoxetine [Strattera] 80 mg Capsule 80 mg PO DAILY Referrals: Physician,None [Primary Care Provider] - Stand Alone Forms: Work/School Release
[2022-09-12] MEDS: Cyclobenzaprine HCl 10 MG TABLET PO (21:55)
[2022-09-12] MEDS: Ibuprofen 600 MG TABLET PO (21:55)
== END 2022-09-12 21:58 | disposition home or self-care (01) ==
PROVIDERS: Emergency Provider Emergency Medicine
DX: M54.2 Cervicalgia (principal)
CPT/HCPCS: 99283; 99284

== ENCOUNTER 2023-01-01 18:45 | Emergency (ER) | payer OTHER, SELFPAY | END 2023-01-01 20:26 | disposition left against medical advice (07) | PROVIDERS: Emergency Provider Emergency Medicine | DX: K08.89 Other specified disorders of teeth and supporting structures (principal) ==

== ENCOUNTER 2024-01-10 10:10 | Emergency (ER) | payer OTHER, SELFPAY ==
[2024-01-10 10:14] VITALS: BP 125/65; PULSE 90; RESP 16; TEMP 36.3; O2SAT 98; BMI 47.3
--- NOTE | 2024-01-10 10:18 | ECG_ITS ---
Test Reason : dizziness Blood Pressure : / mmHG Vent. Rate : 087 BPM Atrial Rate : 087 BPM P-R Int : 152 ms QRS Dur : 082 ms QT Int : 358 ms P-R-T Axes : 051 019 045 degrees QTc Int : 430 ms Normal sinus rhythm Normal ECG When compared with ECG of 24-AUG-2021 16:20, No significant change was found Referred By: Generic ED Physician Electronically Signed By:BETTY STAUFFER
[2024-01-10 10:35] LABS: MANUAL DIFF FLAG NO
--- NOTE | 2024-01-10 10:47 | ED_ITS ---
HPI - Dizziness General Chief Complaint: Dizziness Stated Complaint: covid + dizzy vomiting Time Seen by Provider: 01/10/24 10:46 Source: patient Mode of arrival: ambulatory Limitations: no limitations History of Present Illness HPI Narrative: Patient is a 28-year-old female with no reported past medical history presenting to emergency department for evaluation of dizziness. She states that 4 days ago she awoke with nasal congestion and body aches, she decided to test for COVID-19 and had a positive home test. She has been since experiencing hot and cold sweats subjective fever. She is now experiencing dizziness described as a burning sensation that is made worse with position changing and head movement. She states this morning she has experienced 6 episodes of emesis, ?a shot glass worth of bile?. She denies associated abdominal pain. She is not experiencing any cough, shortness of breath, difficulty breathing, chest pain or palpitations. Denies any numbness or tingling of her extremities. No associated headache. No recent head injury. Denies possibility for , has an IUD in place, menses are irregular does not recall the date of her last. Related Data Home Medications ?Medication ?Instructions ?Recorded ?Confirmed acetaminophen 500 mg capsule 1,000 mg PO BID PRN Pain 06/28/22 06/28/22 atomoxetine 80 mg capsule 80 mg PO DAILY 06/28/22 06/28/22 (Strattera) bupropion HCl 150 mg 24 hr tablet, 150 mg PO QAM 06/28/22 06/28/22 extended release (Wellbutrin XL) clonidine HCl 0.1 mg tablet 0.1 mg PO BID PRN Anxiety 06/28/22 06/28/22 gabapentin 300 mg tablet 300 mg PO DAILY 06/28/22 06/28/22 lamotrigine 25 mg tablet (Lamictal) 25 mg PO DAILY 06/28/22 06/28/22 Previous Rx's ?Medication ?Instructions ?Recorded cyclobenzaprine 10 mg tablet 10 mg PO TID PRN muscle spasm #14 09/12/22 tabs ibuprofen 600 mg tablet 600 mg PO Q8H PRN pain #10 tabs 09/12/22 meclizine 25 mg tablet 25 mg PO TID PRN dizziness #20 tabs 01/10/24 ondansetron 4 mg disintegrating 4 mg PO Q8H PRN nausea and 01/10/24 tablet vomiting #14 tabs Allergies Allergy/AdvReac Type Severity Reaction Status Date / Time No Known Allergies Allergy Verified 01/10/24 10:17 [No Known Allergies*] Review of Systems 2 Review of Systems: Yes all other systems are reviewed and are negative [facility] Past Medical History Attestation statement: The following information was validated with the patient. Source: old records reviewed Medical History Bipolar II disorder in full remission Post traumatic stress disorder (PTSD) delivery delivered Bipolar 1 disorder ADHD Anxiety Social History Social History Household Members: Family Alcohol intake: never Patient Tobacco Use Status: Never used Tobacco Smoked in Last 30 Days: No Use of substances other than those prescribed or required for medical reasons: No Substance Use Type: Marijuana Advance Directives: No Advance Directives Information Provided: No Do you have a plan to hurt others: No Plan Patient : No Physical Exam 2 Vital Signs: Vital Signs: Last Vital Signs Temp 97.4 F 01/10/24 10:14 Pulse 64 01/10/24 13:04 Resp 16 01/10/24 13:04 BP 117/72 01/10/24 13:04 Pulse Ox 100 01/10/24 13:04 O2 Del Method Room Air 01/10/24 13:04 BMI result Body Mass Index 47.3 Appearance: Alert.?Oriented to person, place and time. No acute distress.?Normal affect. Eyes: Pupils equal, round and reactive to light.? EOMI. Horizontal nystagmus noted only with gaze to the right ENT: Pharynx normal.??TM normal bilaterally Neck: Normal inspection.? Neck supple.??No cervical adenopathy CVS: Heart sounds normal. Normal heart rate and rhythm.? Pulses normal.?? Respiratory: No respiratory distress.? Lung sounds clear to auscultation bilaterally?? Abdomen: Soft and non-tender. Normoactive bowel sounds. Skin: Skin warm and dry.? Normal skin color.? Extremities: No lower extremity edema.? No calf ttp? Neuro: Moves all extremities spontaneously. Sensation intact bilaterally. CN II- XII intact. No focal neuro deficits. Ambulates with normal steady gait. Course Reevaluation(s) Reevaluation #1: Dizziness has somewhat improved, reports significant less in severity. Nausea has subsided, no further episodes of vomiting. Feels well enough to return home at this time. Tolerating oral intake. Will discharge home with mother, provided with strict return precautions, all questions answered. Stable for discharge Medications Administered Discontinued Medications Generic Name Dose Route Start Last Admin Trade Name Doug PRN Reason Stop Dose Admin Sodium Chloride 1,000 mls @ 999 mls/hr 01/10/24 11:15 01/10/24 12:38 Ns IV 01/10/24 12:15 Infused .Q1H1M JAYCOB Infusion Meclizine HCl 25 mg 01/10/24 11:15 01/10/24 11:33 Meclizine Hcl 25 Mg Tablet PO 01/10/24 11:16 25 mg ONCE ONE Administration Ondansetron HCl 4 mg 01/10/24 11:15 01/10/24 11:37 Ondansetron Hcl 4 Mg/2 Ml Vial IVPUSH 01/10/24 11:16 4 mg ONCE ONE Administration Medical Decision Making Medical Decision Making [facility] Narrative: Patient is a 28-year-old female past medical history of Bipolar disorder, ADHD, anxiety, PTSD presenting for evaluation of dizziness as per HPI in the setting of recent COVID-19 infection. NIH stroke score 0, low suspicion for cerebellar stroke attempted bedside María maneuver given concern for vertigo the, changing perceived after the maneuver. She has no focal neurological deficits. Dizziness is not exertional , has no associated palpitations, no shortness of breath or chest pain, lower suspicion for significant anemia, arrhythmia, cardiac pathology, aortic dissection. No associated back or abdominal pain to suggest AA. No focal neurological deficits or associated head/neck pain, low suspicion for CVA, ICH. Given its abrupt onset with a 10 severity, associated nausea with vomiting, I suspect it is likely a peripheral etiology rather than central. Although she does have horizontal nystagmus with gaze to the right it is not bidirectional, no diplopia, dysarthria, dysphagia, dysmetria. No orthostatic hypotension. Patient received 1 L normal saline IV fluid, Zofran IV for nausea, meclizine 25 mg. Differential Diagnosis Differential Diagnoses: The differential diagnosis associated with the presentation includes (See narrative above) Admission/Observation Consideration of admission/observation: Escalation of care including admission/observation considered Lab Data MDM Lab Attestation statement: I reviewed the patient's lab results. CBC is without leukocytosis anemia or thrombocytopenia. No electrolyte derangement. No FAREED. HCG is negative. COVID-19 positive. 01/10/24 10:29 01/10/24 10:29 Labs: Lab Results 01/10/24 Range/Units 10:29 WBC 7.6 (4.8-10.8) X10*3/uL RBC 4.41 (4.20-5.50) X10*6/uL Hgb 12.5 (12.0-16.0) g/dl Hct 38.0 (37.0-47.0) % MCV 86.2 (80.0-98.0) fL MCH 28.3 (27.0-33.0) pg MCHC 32.9 (31.0-35.0) g/dl RDW 13.4 (11.0-16.0) % Plt Count 248 (160-400) X10*3/uL MPV 9.4 (9.4-12.3) fL Immature Gran % (Auto) 0.4 (0.0-0.4) % Neut % (Auto) 65.0 (45-73) % Lymph % (Auto) 27.6 (20-40) % [place] % (Auto) 4.2 (2-11) % Eos % (Auto) 2.4 (0-4) % Baso % (Auto) 0.4 (0-2) % Lymph # (Auto) 2.1 (1.2-4.9) X10*3/uL [place] # (Auto) 0.3 (0.1-1.2) X10*3/uL Eos # (Auto) 0.2 (0.0-0.4) X10*3/uL Baso # (Auto) 0.0 (0.0-0.2) X10*3/uL Abs Immat Gran (auto) 0.03 (0.00-0.03) X10*3/uL Absolute Neuts (auto) 4.9 (2.0-8.3) x10*3/uL Absolute Nucleated RBC 0.000 (0.0-0.012) X10*3/uL Nucleated RBC % (auto) 0.0 (0.0-0.2) /100WBC Sodium 139 (135-145) mmol/L Potassium 4.2 (3.3-5.1) mmol/L Chloride 108 (96-108) mmol/L Carbon Dioxide 24 (22-29) mmol/L Anion Gap 11 L (12-20) BUN 10 (9-16) mg/dL Creatinine 0.71 (0.5-1.4) mg/dL Estim Creat Clear Calc 178.8 Estimated GFR > 60 Random Glucose 104 (60-115) mg/dL Calcium 9.2 (8.4-10.2) mg/dL Beta HCG, Quant < 2 mIU/mL Influenza Type A (PCR) NEGATIVE (Negative) Influenza Type B (PCR) NEGATIVE (Negative) RSV RNA Qual (PCR) NEGATIVE (Negative) SARS-CoV-2 RNA (RT-PCR) POSITIVE A (Negative) Independent Interpretation I performed an independent interpretation of an: EKG Interpretation: Rate: 87 Rhythm:? Normal sinus rhyth Normal P waves.? Normal SAM.?? Normal QRS complex.?? ST T wave :??No ST elevation, no ST depression, no T-wave inversion qTC: 430 prior studies:? August of 2021 The study has been interpreted contemporaneously by me. Independent Historian Clinical information obtained from an independent historian. History obtained from or confirmed by: Parent (Mother) External Record Review External record reviewed: Outpatient record Discharge Plan Discharge Clinical Impression: COVID-19, Vertigo Patient Disposition: Home, Self-Care Instructions: Vertigo (ED), Dizziness (ED), COVID-19 (Coronavirus Disease 2019) (ED) Prescriptions: New meclizine 25 mg tablet 25 mg PO TID PRN (Reason: dizziness) Qty: 20 0RF ondansetron 4 mg tablet,disintegrating 4 mg PO Q8H PRN (Reason: nausea and vomiting) Qty: 14 0RF No Action clonidine HCl 0.1 mg Tablet 0.1 mg PO BID PRN (Reason: Anxiety) lamotrigine [Lamictal] 25 mg Tablet 25 mg PO DAILY acetaminophen 500 mg Capsule 1,000 mg PO BID PRN (Reason: Pain) bupropion HCl [Wellbutrin XL] 150 mg Tablet Extended Release 24 Hr 150 mg PO QAM Rx Instructions: Take 150 mg daily on 06/25-07/01 then increase to 300 mg daily. gabapentin 300 mg Tablet 300 mg PO DAILY atomoxetine [Strattera] 80 mg Capsule 80 mg PO DAILY cyclobenzaprine 10 mg tablet 10 mg PO TID PRN (Reason: muscle spasm) Qty: 14 0RF ibuprofen 600 mg tablet 600 mg PO Q8H PRN (Reason: pain) Qty: 10 0RF Referrals: Physician,None [Primary Care Provider] - Print Language: Yi
[2024-01-10 10:48] LABS: Anion Gap 11 (12-20); Basophils Percent Auto 0.4 % (0-2); Blood Urea Nitrogen 10 mg/dL (9-16); Calcium 9.2 mg/dL (8.4-10.2); Carbon Dioxide 24 mmol/L (22-29); Chloride 108 mmol/L (96-108); Creatinine Clr Calc Pharmacy 178.8; Eosinophils Absolute Auto 0.2 X10*3/uL (0.0-0.4); Eosinophils Percent Auto 2.4 % (0-4); Estimated Glomerular Filt Rate > 60; Glucose Random 104 mg/dL (60-115); Hemoglobin 12.5 g/dl (12.0-16.0); Imm Gran Abs Auto 0.03 X10*3/uL (0.00-0.03); Imm Gran Pct Auto 0.4 % (0.0-0.4); Lymphocytes Absolute Auto 2.1 X10*3/uL (1.2-4.9); Lymphocytes Percent Auto 27.6 % (20-40); Mean Corpuscular HGB Conc 32.9 g/dl (31.0-35.0); Mean Corpuscular Hemoglobin 28.3 pg (27.0-33.0); Mean Corpuscular Volume 86.2 fL (80.0-98.0); Mean Platelet Volume 9.4 fL (9.4-12.3); Monocytes Absolute Auto 0.3 X10*3/uL (0.1-1.2); Monocytes Percent Auto 4.2 % (2-11); Neutrophils Absolute Auto 4.9 x10*3/uL (2.0-8.3); Platelet Count 248 X10*3/uL (160-400); Potassium 4.2 mmol/L (3.3-5.1); Red Blood Count 4.41 X10*6/uL (4.20-5.50); Red Cell Distribution Width 13.4 % (11.0-16.0); Sodium 139 mmol/L (135-145); White Blood Count 7.6 X10*3/uL (4.8-10.8)
[2024-01-10 10:52] VITALS: BP 119/73; PULSE 75
[2024-01-10 10:54] VITALS: BP 127/81; PULSE 82
[2024-01-10 10:56] VITALS: BP 122/77; PULSE 87
--- NOTE | 2024-01-10 10:57 | PC.NURSE ---
patient arrives through external triage with cc of dizziness. states she tested positive for covid on friday on a home test, states she took the test due to feeling lethargic and having a headache at home and the test came back positive. was prescribed antivirals for the covid and for the last few days has felt increasingly dizzy, as if the room is spinning. orthostatic vital signs completed by this RN, and are negative. patient states she is also nauseous when the dizziness comes on. states she has had multiple episodes of dry heaving and occasionally will vomit some bile about the amount of a shot glass . patient denies any fevers at home, chest pain or shortness of breath. VSS upon arrival. provider at bedside to assess.
[2024-01-10 11:16] LABS: Influenza A PCR NEGATIVE (Negative); Influenza B PCR NEGATIVE (Negative); Resp Syncy Virus RNA Qual PCR NEGATIVE (Negative); SARS COV2 PCR INHOUSE POSITIVE (Negative)
[2024-01-10] MEDS: Meclizine HCl 25 MG TABLET PO (11:33)
[2024-01-10] MEDS: ondansetron HCL 4 MG/2 ML VIAL IVPUSH (11:37)
[2024-01-10] MEDS: 0.9 % Sodium Chloride 1,000 ML 999 ML IV (11:38)
[2024-01-10 11:39] LABS: HCG Quantitative < 2 mIU/mL
--- NOTE | 2024-01-10 12:55 | PC.NURSE ---
patient ambulatory with steady gait to bathroom
[2024-01-10 13:04] VITALS: BP 117/72; PULSE 64; RESP 16; O2SAT 100
--- NOTE | 2024-01-10 14:08 | PC.NURSE ---
patient provided with flaco cooley and smith, states her nausea is much better, however she still feels dizzy, states to this RN as long as im not throwing up i can lay in my bed like this will make provider aware.
[2024-01-10 14:41] VITALS: BP 117/72; PULSE 64; RESP 16; TEMP 36.9; O2SAT 100
== END 2024-01-10 14:45 | disposition home or self-care (01) ==
PROVIDERS: Nurse Practitioner Family; Emergency Provider Emergency Medicine Emergency Medical Services
DX: R42 Dizziness and giddiness (principal); U07.1 COVID-19; R61 Generalized hyperhidrosis
CPT/HCPCS: 0241U; 36415; 80048; 84702; 85025; 93005; 96361; 96374; 99284; 99285; J2405